=== PATIENT | female | born 1970 | race Caucasian/White ===

== ENCOUNTER → 2016-12-07 | Outpatient (CLI) | payer OTHER ==
[~2016-12-07] MED LIST: ZOLPIDEM 5 MG TABLET. PO ONE
--- NOTE | 2016-12-09 19:15 | SLEEP ---
DATE OF STUDY: 12/07/2016 ATTENDING PHYSICIAN: Abner Mei MD HISTORY OF PRESENT ILLNESS: The patient is a 46 years old, who weighs 319 pounds with a BMI of 50. The patient has severe subjective hypersomnia with an Encinal score of 18. Sleep study was performed to rule out JACQUIE. During the night study, the patient spent 422 minutes in bed and slept for 343 minutes with a sleep efficiency of 81%. Sleep latency was 103 minutes with the absence of REM sleep. Overall, sleep architecture showed increased stage 1 and stage 2 sleep, normal slow wave and absent REM sleep. During the night of the study, the patient had no obstructive apneas. There were no central apneas and 2 mixed apneas. There were 52 hypopneas. The patient's apnea hypopnea index was 9 per hour, supine index 11 per hour. REM sleep was not seen. Review of nocturnal oximetry study revealed a mean oxygen saturation of 94% with the lowest of 85%. 9% of time oxygen saturation remained between 80% and 89%. EKG monitoring revealed normal sinus rhythm. No sustained arrhythmias were observed. Average heart rate was 87 beats per minute. PLMS were seen at the index of 125 per hour and 11 per hour caused EEG arousals. Due to low AHI, the patient did not meet the split night criteria for CPAP initiation. IMPRESSION: 1. Mild sleep apnea-hypopnea syndrome at an AHI of 9 per hour. Absence of REM sleep can underestimate the severity of sleep apnea. 2. Mild nocturnal hypoxia secondary to obstructive sleep apnea. 3. Severe PLMS at an index of 125 per hour and 11 per hour caused EEG arousals. RECOMMENDATIONS: 1. The patient did not meet the split night criteria for CPAP initiation due to low AHI. However, the patient is very symptomatic with an Encinal score of 18. I would recommend treating patient's sleep apnea with either an oral appliance as recommended by the dentist or CPAP titration. 2. If patient undergoes CPAP titration, then follow up in 4-6 weeks to assess compliance with CPAP and to document clinical improvement. 3. Weight loss is strongly advised. 4. Avoid CORPORATE LEARNING CONSULTANT depressants. 5. Caution regarding driving until symptoms of sleep apnea resolve with above recommendations. 6. PLMS can be treated with dopaminergic agonist agents if the patient is clinically symptomatic. The patient should also be further evaluated for symptoms of restless legs during the day. GURVINDER GAMBOA MD DR: Wolfgang JOB#: [id number] / [id number] ABNER Yuen
== END | disposition home or self-care (01) ==
LOC: SLPLAB 18:40
PROVIDERS: ATTEND Family Medicine
DX: R53.83 Other fatigue (principal); G47.33 Obstructive sleep apnea (adult) (pediatric)
CPT/HCPCS: 95810

== ENCOUNTER → 2017-01-04 | Day surgery (SDC) | payer OTHER ==
[~2017-01-04] MED LIST changes: +ANAS1TAB PO; +CETI10TA16 PO; +CITA20TA5 PO; +IV RINGERS,LACTATED 1000ML 1,000 ML IV SCH; +LANS15CA5 PO; +MOME17SP NS; +MONT10TA9 PO; +NAPR500T3 PO; +PROPOFOL 20 ML IV ONE; +RANI150C PO; +TERB250T PO; -ZOLPIDEM 5 MG TABLET. PO ONE
[2017-01-04 08:36] VITALS: BP 159/92
--- NOTE | 2017-01-05 14:02 | PATHOLOGY ---
PATHOLOGY REPORT * * * * * * * * FINAL DIAGNOSIS: Esophageal biopsy, distal esophagus: - Segments of hyperplastic squamous esophageal mucosa showing chronic inflammation, consistent with reflux esophagitis. COMMENT: Sections of the distal esophageal biopsy reveal segments of hyperplastic squamous esophageal mucosa showing focal mild to moderate chronic inflammation. The findings are consistent with reflux esophagitis. There is no evidence of Luna's change, dysplasia, or malignancy. (JPM:; d/t: 01/05/17) REPORT ELECTRONICALLY SIGNED BY: Fercho Ortiz M.D. DATE/TIME: 01/05/2017 14:01 * * * * * * * * GROSS PATHOLOGY: Received in formalin labeled "Noreen Caro and distal esophageal bx," are 3 segments of nagy soft tissue measuring 1.2 x 0.4 x 0.2 cm in aggregate dimensions and ranging from 0.2 to 0.6 cm in maximum dimension. The specimen is submitted entirely in cassette A1. (TTL; 01/04/2017) INITIAL CPT CODE(S): A; 96248 Professional services performed [place] [facility] [address] Technical services performed by [facility] at [address] [place] [address]. SPECIMEN(S) RECEIVED: A.Distal esophageal biopsy, r/o esophagitis CLINICAL HISTORY: GERD PATIENT: NOREEN CARO /AGE: 5 1970 (Age: 46) PATIENT #: [id number] ALT CASE #: SPECIMEN COLLECTION DATE: 01/04/2017 SPECIMEN RECEIVED DATE: 01/04/2017 [facility] - [address] [place] [address] - PHONE: [phone] * * * END OF REPORT * * *
== END | disposition home or self-care (01) ==
LOC: ENDOS 06:37
PROVIDERS: ATTEND Internal Medicine Gastroenterology
DX: K21.0 Gastro-esophageal reflux disease with esophagitis (principal); K29.70 Gastritis, unspecified, without bleeding; Z72.89 Other problems related to lifestyle; Z90.710 Acquired absence of both cervix and uterus; Z85.3 Personal history of malignant neoplasm of breast
CPT/HCPCS: 43239; J2704

== ENCOUNTER → 2017-01-27 | Outpatient (CLI) | payer OTHER ==
[2017-01-04 08:36] VITALS: BP 159/92
[~2017-01-27] MED LIST changes: -IV RINGERS,LACTATED 1000ML 1,000 ML IV SCH; -PROPOFOL 20 ML IV ONE
[2017-01-27 13:33] LABS: BASO # 0.1 x10^3/uL (0.0-0.2); BASO % 1 % (0-3); EOS % 2 % (0-3); HEMATOCRIT 39.4 % (36.0-47.0); HEMOGLOBIN 12.8 g/dL (12.0-15.5); LYMPH # 1.5 x10^3/uL (1.0-4.8); LYMPH % 21 % (24-48); MEAN CORPUSCULAR HEMOGLOBIN 29 pg (25-35); MEAN CORPUSCULAR HGB CONC 33 g/dL (31-37); MEAN CORPUSCULAR VOLUME 90 fL (79-100); MONO % 7 % (0-9); NEUT % 68 % (31-73); PLATELET COUNT 276 x10^3/uL (140-400); RED BLOOD COUNT 4.36 x10^6/uL (3.50-5.40); RED CELL DISTRIBUTION WIDTH 14.2 % (11.5-14.5); WHITE BLOOD COUNT 7.3 x10^3/uL (4.0-11.0)
[2017-01-27 13:59] LABS: ALBUMIN 4.3 g/dL (3.4-5.0); CALCIUM 9.2 mg/dL (8.5-10.1); CREATININE 0.9 mg/dL (0.6-1.0); GFR 66.8; POTASSIUM 4.3 mmol/L (3.5-5.1); TOTAL BILIRUBIN 0.4 mg/dL (0.2-1.0); TOTAL PROTEIN 8.5 g/dL (6.4-8.2)
== END | disposition home or self-care (01) ==
LOC: LAB 12:59
PROVIDERS: ATTEND Internal Medicine Hematology & Oncology
DX: C50.412 Malignant neoplasm of upper-outer quadrant of left female breast (principal)
CPT/HCPCS: 36415; 80053; 85027; 86300

== ENCOUNTER → 2017-02-02 | Outpatient (CLI) | payer OTHER ==
[2017-01-04 08:36] VITALS: BP 159/92
[2017-02-10 13:44] LABS: COMMENT IMMUNOFIX SERUM SEE SEPARATE REPORT; PROTEIN TOTAL SEE SEPARATE REPORT
== END | disposition home or self-care (01) ==
LOC: LAB 16:36
PROVIDERS: ATTEND Internal Medicine Hematology & Oncology
DX: C50.412 Malignant neoplasm of upper-outer quadrant of left female breast (principal)
CPT/HCPCS: 36415; 84165; 86334

== ENCOUNTER → 2017-11-28 | Outpatient (CLI) | payer OTHER ==
[2017-11-28 07:45] LABS: ADD MAN DIFF? NO
[2017-11-28 07:54] LABS: BASO # 0.1 x10^3/uL (0.0-0.2); BASO % 1 % (0-3); EOS # 0.1 x10^3/uL (0.0-0.7); EOS % 2 % (0-3); HEMATOCRIT 38.9 % (36.0-47.0); HEMOGLOBIN 12.9 g/dL (12.0-15.5); LYMPH # 1.1 x10^3/uL (1.0-4.8); LYMPH % 19 % (24-48); MEAN CORPUSCULAR HEMOGLOBIN 30 pg (25-35); MEAN CORPUSCULAR HGB CONC 33 g/dL (31-37); MEAN CORPUSCULAR VOLUME 89 fL (79-100); MONO # 0.5 x10^3/uL (0.0-1.1); MONO % 9 % (0-9); NEUT # 4.3 x10^3uL (1.8-7.7); NEUT % 69 % (31-73); PLATELET COUNT 232 x10^3/uL (140-400); RED BLOOD COUNT 4.38 x10^6/uL (3.50-5.40); RED CELL DISTRIBUTION WIDTH 14.2 % (11.5-14.5); WHITE BLOOD COUNT 6.2 x10^3/uL (4.0-11.0)
[2017-11-28 08:07] LABS: BILIRUBIN,URINE NEGATIVE (NEG); CLARITY,URINE CLEAR; COLOR,URINE YELLOW; GLUCOSE,URINE NEGATIVE (NEG); NITRITE,URINE NEGATIVE (NEG); PH,URINE 6.5; PROTEIN,URINE NEGATIVE (NEG-TRACE); UROBILINOGEN,URINE 0.2 mg/dL (0.2 mg/dL)
[2017-11-28 08:16] LABS: ALBUMIN 3.9 g/dL (3.4-5.0); ALBUMIN/GLOBULIN RATIO 0.9 (1.0-1.7); ALK PHOS 92 U/L (46-116); ALT (SGPT) 29 U/L (14-59); ANION GAP 6 (6-14); AST (SGOT) 34 U/L (15-37); BLOOD UREA NITROGEN 19 mg/dL (7-20); BUN/CREATININE RATIO 21 (6-20); CALCIUM 9.1 mg/dL (8.5-10.1); CARBON DIOXIDE 30 mmol/L (21-32); CHLORIDE 103 mmol/L (98-107); CHOLESTEROL 142 mg/dL (0-200); CREATININE 0.9 mg/dL (0.6-1.0); GFR 66.5; GLUCOSE 95 mg/dL (70-99); HDLC 52 mg/dL (40-60); LDLC 73 mg/dL (0-100); NON-HDL CHOLESTEROL 90 mg/dL (0-129); POTASSIUM 4.6 mmol/L (3.5-5.1); SODIUM 139 mmol/L (136-145); TOTAL BILIRUBIN 0.4 mg/dL (0.2-1.0); TOTAL PROTEIN 8.1 g/dL (6.4-8.2); TRIGLYCERIDES 86 mg/dL (0-150); VLDLC 17 mg/dL (0-40)
[2017-11-28 08:17] LABS: CHOLESTEROL/HDL RATIO 2.7
[2017-11-28 08:24] LABS: THYROID STIM HORMONE (TSH) 1.627 uIU/mL (0.358-3.74)
[2017-11-28 08:52] LABS: BACTERIA,URINE FEW /HPF (0-FEW); RBC,URINE 0 /HPF (0-2); SQUAMOUS EPITHELIAL CELL,UR FEW /LPF
== END | disposition home or self-care (01) ==
LOC: LAB 07:31
DX: Z00.01 Encounter for general adult medical examination with abnormal findings (principal); R79.89 Other specified abnormal findings of blood chemistry
CPT/HCPCS: 36415; 80053; 80061; 81001; 84443; 85025; 87086

== ENCOUNTER → 2018-02-05 | Outpatient (CLI) | payer OTHER ==
[2018-02-05 16:29] LABS: ADD MAN DIFF? NO
[2018-02-05 16:37] LABS: BASO # 0.1 x10^3/uL (0.0-0.2); BASO % 1 % (0-3); EOS # 0.1 x10^3/uL (0.0-0.7); EOS % 2 % (0-3); HEMOGLOBIN 12.7 g/dL (12.0-15.5); LYMPH # 1.7 x10^3/uL (1.0-4.8); LYMPH % 21 % (24-48); MEAN CORPUSCULAR HEMOGLOBIN 30 pg (25-35); MEAN CORPUSCULAR HGB CONC 33 g/dL (31-37); MEAN CORPUSCULAR VOLUME 90 fL (79-100); MONO # 0.8 x10^3/uL (0.0-1.1); MONO % 10 % (0-9); NEUT # 5.4 x10^3uL (1.8-7.7); NEUT % 66 % (31-73); PLATELET COUNT 243 x10^3/uL (140-400); RED BLOOD COUNT 4.24 x10^6/uL (3.50-5.40); RED CELL DISTRIBUTION WIDTH 14.5 % (11.5-14.5); WHITE BLOOD COUNT 8.1 x10^3/uL (4.0-11.0)
[2018-02-05 16:59] LABS: ALBUMIN 3.8 g/dL (3.4-5.0); ALBUMIN/GLOBULIN RATIO 0.9 (1.0-1.7); ALK PHOS 108 U/L (46-116); ALT (SGPT) 30 U/L (14-59); ANION GAP 9 (6-14); AST (SGOT) 41 U/L (15-37); BLOOD UREA NITROGEN 13 mg/dL (7-20); BUN/CREATININE RATIO 14 (6-20); CALCIUM 9.1 mg/dL (8.5-10.1); CARBON DIOXIDE 29 mmol/L (21-32); CHLORIDE 103 mmol/L (98-107); CREATININE 0.9 mg/dL (0.6-1.0); GFR 66.5; GLUCOSE 99 mg/dL (70-99); POTASSIUM 4.4 mmol/L (3.5-5.1); SODIUM 141 mmol/L (136-145); TOTAL BILIRUBIN 0.3 mg/dL (0.2-1.0)
[2018-02-06 07:36] LABS: CA 27.29 13.3 U/mL (0.0-38.6)
== END | disposition home or self-care (01) ==
LOC: LAB 16:12
DX: C50.412 Malignant neoplasm of upper-outer quadrant of left female breast (principal); Z17.0 Estrogen receptor positive status [ER+]
CPT/HCPCS: 36415; 80053; 85025; 85220; 86300

== ENCOUNTER → 2018-02-12 | Outpatient (CLI) | payer OTHER | END | disposition home or self-care (01) | LOC: KCIC DEXA 11:02 | DX: C50.912 Malignant neoplasm of unspecified site of left female breast (principal); M81.0 Age-related osteoporosis without current pathological fracture; M85.88 Other specified disorders of bone density and structure, other site; Z78.0 Asymptomatic menopausal state | CPT/HCPCS: 77080 ==

== ENCOUNTER → 2018-08-06 | Outpatient (CLI) | payer OTHER ==
[2017-01-04 08:36] VITALS: BP 159/92
[~2018-08-06] MED LIST changes: -CITA20TA5 PO; +CITA20TA6 PO; +NAPR-514 PO; -NAPR500T3 PO
[2018-08-06 16:53] LABS: BASO # 0.1 x10^3/uL (0.0-0.2); BASO % 1 % (0-3); EOS # 0.1 x10^3/uL (0.0-0.7); EOS % 2 % (0-3); HEMATOCRIT 36.9 % (36.0-47.0); HEMOGLOBIN 12.3 g/dL (12.0-15.5); LYMPH # 1.5 x10^3/uL (1.0-4.8); LYMPH % 20 % (24-48); MEAN CORPUSCULAR HEMOGLOBIN 30 pg (25-35); MEAN CORPUSCULAR HGB CONC 33 g/dL (31-37); MEAN CORPUSCULAR VOLUME 90 fL (79-100); MONO # 0.7 x10^3/uL (0.0-1.1); MONO % 10 % (0-9); NEUT % 67 % (31-73); PLATELET COUNT 259 x10^3/uL (140-400); RED BLOOD COUNT 4.11 x10^6/uL (3.50-5.40); RED CELL DISTRIBUTION WIDTH 14.2 % (11.5-14.5); WHITE BLOOD COUNT 7.3 x10^3/uL (4.0-11.0)
[2018-08-06 17:10] LABS: CALCIUM 9.6 mg/dL (8.5-10.1); GFR 58.7; POTASSIUM 5.4 mmol/L (3.5-5.1); TOTAL BILIRUBIN 0.2 mg/dL (0.2-1.0); TOTAL PROTEIN 8.2 g/dL (6.4-8.2)
== END | disposition home or self-care (01) ==
LOC: LAB 16:37
PROVIDERS: ATTEND Internal Medicine Hematology & Oncology
DX: C50.412 Malignant neoplasm of upper-outer quadrant of left female breast (principal); Z17.0 Estrogen receptor positive status [ER+]
CPT/HCPCS: 36415; 80053; 85025; 86300

== ENCOUNTER → 2018-10-12 | Day surgery (SDC) | payer OTHER ==
[~2018-10-12] MED LIST changes: +HYDROmorphone 2 MG/ML VIAL IV PRN; +IV RINGERS,LACTATED 1000ML 1,000 ML IV SCH; +LIDOCAINE 1% PF 2 ML VIAL. ID PRN; +LOSA25TA54 PO; +MONT10TA49 PO; -MONT10TA9 PO; +MORPHINE SULFATE 2 MG/ML VIAL. IV PRN; +ONDANSETRON PF 4 MG/2 ML VIAL. IV PRN; +PROCHLORPERAZINE 10 MG/2 ML VIAL. IV PRN; +PROPOFOL 40 ML IV ONE; +fentaNYL PF VIAL 100 MCG/2 ML VIAL IV PRN
[2018-10-12 10:03] VITALS: BP 117/72
--- NOTE | 2018-10-12 11:41 | CONS ---
DATE OF CONSULTATION: 10/12/2018 UPDATED HISTORY AND PHYSICAL REFERRING PHYSICIAN: Dayne Mei. REASON FOR VISIT: Colorectal screening. HISTORY OF PRESENT ILLNESS: A 48-year-old female whose past medical history is significant for gastroesophageal reflux disease, breast cancer, hypertension and osteoarthritis, who is seen for a screening colon exam. Bowel habits are regular, without diarrhea or constipation. There has been no melena and/or hematochezia. Family history is unrevealing for colon cancer, but positive for colon polyps with her sister. This is her first colon exam. She is, otherwise, without additional constitutional complaints. PAST MEDICAL HISTORY: History of GERD, breast cancer, hypertension and osteoarthrosis. ALLERGIES: None. MEDICATIONS: Include , cetirizine, citalopram, Prevacid, losartan, Nasonex, montelukast, Naprosyn and Lamisil. SOCIAL HISTORY: Nonsmoker. Social drinker. FAMILY HISTORY: Significant for colonic polyps with her sister, breast cancer with multiple siblings, [place] with her father and uncle and CVA with an uncle and paternal grandfather. PAST SURGICAL HISTORY: Breast surgery and hysterectomy. REVIEW OF SYSTEMS: Per records. PHYSICAL EXAMINATION: GENERAL: Reveals a well-nourished, well-developed female. VITAL SIGNS: Temperature is 98.6, pulse is 90 and respiratory rate is 20. HEENT EXAMINATION: Normocephalic, atraumatic. Pupils and extraocular muscles are not tested. Sclerae are anicteric. NECK: Supple. LUNGS: Clear. CARDIOVASCULAR EXAMINATION: Reveals an S1 and S2, without S3, S4 or appreciable murmur. ABDOMEN: Examination reveals soft abdomen. Normoactive bowel sounds, without appreciable hepatosplenomegaly, with infraumbilical hysterectomy incision. EXTREMITIES: Examination reveals no cyanosis, clubbing or edema. IMPRESSION AND PLAN: Colorectal screening. With a positive family history of colon polyps, it is recommended at this time. Risks and benefits of the procedure were discussed with the patient, including risk of hemorrhage and perforation. She is willing to proceed. SHASHA DAY MD DR: HARRIET/kwame JOB#: [id number] / [id number]
--- NOTE | 2018-10-15 15:08 | PATHOLOGY ---
[facility] Accession Number: [id number] . 01 Material submitted: . SIGMOID POLYP . 01 Clinical history: . Screening . 02 Diagnosis: Colon biopsies, sigmoid polyp: - Hyperplastic polyp. (JPM:kay; 10/15/2018) QMS/10/15/2018 . 02 Comment: There are no adenomatous changes or evidence of malignancy. . 02 Electronically signed: . Fercho Ortiz MD, Pathologist NPI- [id number] . 01 Gross description: . Received in formalin labeled "Gordo, Noreen, sigmoid polyp," are 2 segments of nagy soft tissue measuring 1.0 x 0.2 x 0.2 cm in aggregate dimensions and ranging from 0.7 to 0.2 cm in maximum dimension. The specimen is submitted entirely in cassette A1. (TSD; 10/12/2018) TOB/TOB . 02 Pathologist provided ICD-10: K63.5 . 02 CPT . 168980 Specimen Comment: A courtesy copy of this report has been sent to Specimen Comment: [phone], . Specimen Comment: Report sent to and Performed at: 01 [facility] [address], [place] [id number] MD Landon You MD Phone: [phone] Performed at: 02 [facility] [address] [place], [place] [id number] MD Fercho Ortiz MD Phone: [phone]
== END | disposition home or self-care (01) ==
LOC: SURG 08:07
PROVIDERS: ATTEND Internal Medicine Gastroenterology
DX: Z12.11 Encounter for screening for malignant neoplasm of colon (principal); K63.5 Polyp of colon; K57.30 Diverticulosis of large intestine without perforation or abscess without bleeding; K64.0 First degree hemorrhoids; I10 Essential (primary) hypertension; K21.9 Gastro-esophageal reflux disease without esophagitis; Z85.3 Personal history of malignant neoplasm of breast; M19.90 Unspecified osteoarthritis, unspecified site; Z79.899 Other long term (current) drug therapy; Z72.89 Other problems related to lifestyle; Z82.49 Family history of ischemic heart disease and other diseases of the circulatory system; Z90.710 Acquired absence of both cervix and uterus; Z98.890 Other specified postprocedural states
CPT/HCPCS: 45380; J2704; 88305

== ENCOUNTER → 2019-02-07 | Outpatient (CLI) | payer OTHER ==
[2018-10-12 10:03] VITALS: BP 117/72
[~2019-02-07] MED LIST changes: -HYDROmorphone 2 MG/ML VIAL IV PRN; -IV RINGERS,LACTATED 1000ML 1,000 ML IV SCH; -LIDOCAINE 1% PF 2 ML VIAL. ID PRN; -MONT10TA49 PO; +MONT10TA9 PO; -MORPHINE SULFATE 2 MG/ML VIAL. IV PRN; -ONDANSETRON PF 4 MG/2 ML VIAL. IV PRN; -PROCHLORPERAZINE 10 MG/2 ML VIAL. IV PRN; -PROPOFOL 40 ML IV ONE; -fentaNYL PF VIAL 100 MCG/2 ML VIAL IV PRN
[2019-02-07 17:19] LABS: BASO # 0.1 x10^3/uL (0.0-0.2); BASO % 1 % (0-3); EOS # 0.2 x10^3/uL (0.0-0.7); EOS % 2 % (0-3); HEMATOCRIT 37.8 % (36.0-47.0); HEMOGLOBIN 12.6 g/dL (12.0-15.5); LYMPH # 1.4 x10^3/uL (1.0-4.8); LYMPH % 13 % (24-48); MEAN CORPUSCULAR HEMOGLOBIN 30 pg (25-35); MEAN CORPUSCULAR HGB CONC 33 g/dL (31-37); MEAN CORPUSCULAR VOLUME 89 fL (79-100); MONO # 0.9 x10^3/uL (0.0-1.1); MONO % 8 % (0-9); NEUT # 7.9 x10^3uL (1.8-7.7); NEUT % 76 % (31-73); PLATELET COUNT 251 x10^3/uL (140-400); RED BLOOD COUNT 4.24 x10^6/uL (3.50-5.40); RED CELL DISTRIBUTION WIDTH 14.3 % (11.5-14.5); WHITE BLOOD COUNT 10.4 x10^3/uL (4.0-11.0)
[2019-02-07 17:30] LABS: ALBUMIN 4.1 g/dL (3.4-5.0); CALCIUM 9.2 mg/dL (8.5-10.1); GFR 58.5; POTASSIUM 3.9 mmol/L (3.5-5.1); TOTAL BILIRUBIN 0.4 mg/dL (0.2-1.0); TOTAL PROTEIN 8.1 g/dL (6.4-8.2)
== END | disposition home or self-care (01) ==
LOC: LAB 16:39
PROVIDERS: ATTEND Internal Medicine Hematology & Oncology
DX: C50.412 Malignant neoplasm of upper-outer quadrant of left female breast (principal); Z17.0 Estrogen receptor positive status [ER+]
CPT/HCPCS: 36415; 80053; 85025; 86300

== ENCOUNTER → 2019-08-05 | Outpatient (CLI) | payer OTHER ==
[2018-10-12 10:03] VITALS: BP 117/72
[~2019-08-05] MED LIST changes: +MONT10TA49 PO; -MONT10TA9 PO
[2019-08-05 17:00] LABS: BASO # 0.1 x10^3/uL (0.0-0.2); BASO % 1 % (0-3); EOS # 0.3 x10^3/uL (0.0-0.7); EOS % 3 % (0-3); HEMATOCRIT 39.1 % (36.0-47.0); HEMOGLOBIN 12.9 g/dL (12.0-15.5); LYMPH # 1.6 x10^3/uL (1.0-4.8); LYMPH % 20 % (24-48); MEAN CORPUSCULAR HEMOGLOBIN 29 pg (25-35); MEAN CORPUSCULAR HGB CONC 33 g/dL (31-37); MEAN CORPUSCULAR VOLUME 89 fL (79-100); MONO # 0.8 x10^3/uL (0.0-1.1); MONO % 9 % (0-9); NEUT # 5.5 x10^3/uL (1.8-7.7); NEUT % 66 % (31-73); PLATELET COUNT 269 x10^3/uL (140-400); RED BLOOD COUNT 4.41 x10^6/uL (3.50-5.40); RED CELL DISTRIBUTION WIDTH 14.3 % (11.5-14.5); WHITE BLOOD COUNT 8.3 x10^3/uL (4.0-11.0)
[2019-08-05 17:08] LABS: ALBUMIN 4.1 g/dL (3.4-5.0); CALCIUM 9.1 mg/dL (8.5-10.1); CREATININE 1.1 mg/dL (0.6-1.0); GFR 52.4; TOTAL BILIRUBIN 0.3 mg/dL (0.2-1.0); TOTAL PROTEIN 8.2 g/dL (6.4-8.2)
== END | disposition home or self-care (01) ==
LOC: LAB 16:37
PROVIDERS: ATTEND Internal Medicine Hematology & Oncology
DX: C50.412 Malignant neoplasm of upper-outer quadrant of left female breast (principal); Z17.0 Estrogen receptor positive status [ER+]
CPT/HCPCS: 36415; 80053; 85025; 86300

== ENCOUNTER → 2019-11-06 | Outpatient (CLI) | payer OTHER ==
[2018-10-12 10:03] VITALS: BP 117/72
[~2019-11-06] MED LIST changes: +ZOLPIDEM 5 MG TABLET. PO ONE
--- NOTE | 2019-11-07 12:27 | SLEEP ---
DATE OF STUDY: 11/06/2019 SLEEP STUDY ATTENDING PHYSICIAN: Deonna Lehman MD SUMMARY: The patient is 49 years old who weighs 330 pounds with a BMI of 52. The patient's Windfall score was 18. The patient underwent split night study performed at [facility]. During the night study, the patient spent 427 minutes in bed and slept for 361 minutes with a sleep efficiency of 85%. Sleep latency was 11 minutes with a REM latency of 293 minutes. Sleep architecture showed normal stage 1 sleep, increased stage 2 sleep, normal slow wave and normal REM sleep. During the initial diagnostic portion of the study, the patient slept for 117 minutes. During that time, there were no obstructive central or mixed apneas. There were 46 hypopneas. The patient's apnea-hypopnea index was 24 per hour, supine index 28 per hour. REM sleep was not seen during the diagnostic portion. EKG monitoring revealed normal sinus rhythm. Average heart rate 94 beats per minute, no sustained arrhythmias observed. Nocturnal oximetry study revealed a mean oxygen saturation of 96% with the lowest of 85%. A 24% of time oxygen saturation remained between 80% and 89%. PLMS were seen at index of 5 per hour and 2 per hour caused EEG arousals. The patient met the criteria for CPAP initiation. It was started at 5 cm water and titrated up to 14 cm water. At the final pressure, the patient slept for 95 minutes including supine and REM sleep. The patient's AHI was reduced to 1 per hour and oxygen saturation remained above 91%. The patient used a medium size full face mask. IMPRESSION: 1. Moderate sleep apnea-hypopnea syndrome at an AHI of 24 per hour. Absence of REM sleep during the diagnostic portion can underestimate the severity of sleep apnea. 2. Nocturnal hypoxia secondary to obstructive sleep apnea. 3. No clinically significant periodic limb movements in sleep. RECOMMENDATIONS: 1. CPAP at 14 cm water completely eliminated the patient's sleep apnea and should be used on a nightly basis. 2. Follow up in 4-6 weeks to assess compliance with CPAP and to document clinical improvement. 3. Weight loss is strongly advised. 4. Avoid RETAIL DELIVERY DRIVER depressants. 5. Cautioned regarding driving until symptoms of sleep apnea resolve with the use of CPAP. GURVINDER GAMBOA MD DR: DOLLY/kwame JOB#: [id number] / [id number] DEONNA Humphreys MD
== END | disposition home or self-care (01) ==
LOC: SLPLAB 18:44
PROVIDERS: ATTEND Internal Medicine
DX: G47.33 Obstructive sleep apnea (adult) (pediatric) (principal); G47.34 Idiopathic sleep related nonobstructive alveolar hypoventilation
CPT/HCPCS: 95810

== ENCOUNTER → 2020-02-04 | Outpatient (CLI) | payer OTHER ==
[2018-10-12 10:03] VITALS: BP 117/72
[~2020-02-04] MED LIST changes: -ZOLPIDEM 5 MG TABLET. PO ONE
[2020-02-04 16:43] LABS: BASO % 0 % (0-3); EOS # 0.2 x10^3/uL (0.0-0.7); EOS % 2 % (0-3); HEMATOCRIT 37.1 % (36.0-47.0); HEMOGLOBIN 12.4 g/dL (12.0-15.5); LYMPH # 1.4 x10^3/uL (1.0-4.8); LYMPH % 16 % (24-48); MEAN CORPUSCULAR HEMOGLOBIN 30 pg (25-35); MEAN CORPUSCULAR HGB CONC 33 g/dL (31-37); MEAN CORPUSCULAR VOLUME 89 fL (79-100); MONO # 0.7 x10^3/uL (0.0-1.1); MONO % 9 % (0-9); NEUT # 6.2 x10^3/uL (1.8-7.7); NEUT % 72 % (31-73); PLATELET COUNT 261 x10^3/uL (140-400); RED BLOOD COUNT 4.15 x10^6/uL (3.50-5.40); RED CELL DISTRIBUTION WIDTH 14.9 % (11.5-14.5); WHITE BLOOD COUNT 8.6 x10^3/uL (4.0-11.0)
[2020-02-04 17:19] LABS: ALBUMIN/GLOBULIN RATIO 1.1 (1.0-1.7); CALCIUM 9.1 mg/dL (8.5-10.1); CREATININE 0.9 mg/dL (0.6-1.0); POTASSIUM 4.8 mmol/L (3.5-5.1); TOTAL BILIRUBIN 0.4 mg/dL (0.2-1.0); TOTAL PROTEIN 7.5 g/dL (6.4-8.2)
== END | disposition home or self-care (01) ==
LOC: LAB 16:19
PROVIDERS: ATTEND Internal Medicine
DX: Z00.6 Encounter for examination for normal comparison and control in clinical research program (principal); C50.412 Malignant neoplasm of upper-outer quadrant of left female breast
CPT/HCPCS: 36415; 80053; 85025; 86300

== ENCOUNTER → 2020-06-02 | Outpatient (CLI) | payer OTHER ==
[2018-10-12 10:03] VITALS: BP 117/72
== END | disposition home or self-care (01) ==
LOC: LAB 11:24
PROVIDERS: ATTEND Internal Medicine Pulmonary Disease
DX: Z20.828 Contact with and (suspected) exposure to other viral communicable diseases (principal)
CPT/HCPCS: U0003-CS

== ENCOUNTER → 2020-08-26 | Outpatient (CLI) | payer OTHER ==
[2018-10-12 10:03] VITALS: BP 117/72
[2020-08-26 19:17] LABS: TOTAL PROTEIN 7.3 g/dL (6.4-8.2)
[2020-08-26 19:18] LABS: ALBUMIN/GLOBULIN RATIO 1.2 (1.0-1.7); CALCIUM 9.2 mg/dL (8.5-10.1); CREATININE 0.9 mg/dL (0.6-1.0); GFR 65.8; POTASSIUM 4.5 mmol/L (3.5-5.1); TOTAL BILIRUBIN 0.3 mg/dL (0.2-1.0)
[2020-08-27 16:00] LABS: BASO # 0.1 x10^3/uL (0.0-0.2); BASO % 1 % (0-3); EOS # 0.3 x10^3/uL (0.0-0.7); EOS % 4 % (0-3); HEMATOCRIT 36.2 % (36.0-47.0); LYMPH # 1.3 x10^3/uL (1.0-4.8); LYMPH % 18 % (24-48); MEAN CORPUSCULAR HEMOGLOBIN 30 pg (25-35); MEAN CORPUSCULAR HGB CONC 33 g/dL (31-37); MEAN CORPUSCULAR VOLUME 89 fL (79-100); MONO # 0.7 x10^3/uL (0.0-1.1); MONO % 10 % (0-9); NEUT # 4.9 x10^3/uL (1.8-7.7); NEUT % 67 % (31-73); PLATELET COUNT 260 x10^3/uL (140-400); RED BLOOD COUNT 4.06 x10^6/uL (3.50-5.40); RED CELL DISTRIBUTION WIDTH 14.4 % (11.5-14.5); WHITE BLOOD COUNT 7.3 x10^3/uL (4.0-11.0)
== END ==
LOC: LAB 16:32
PROVIDERS: ATTEND Internal Medicine Hematology & Oncology
DX: C50.412 Malignant neoplasm of upper-outer quadrant of left female breast (principal); Z17.0 Estrogen receptor positive status [ER+]
CPT/HCPCS: 36415; 80053; 85025; 86300

== ENCOUNTER → 2020-12-21 | Outpatient (CLI) | payer OTHER ==
[2018-10-12 10:03] VITALS: BP 117/72
--- NOTE | 2020-12-22 09:40 | RAD ---
CT ORBITS/SELLA WITHOUT CONTRAST Clinical indications: Left ear cholesteatoma. Technique: Helical CT scanning of both temporal bones was performed. 1 mm reconstructed axial and cor onal small [id number] CT images of each temporal bone were generated and reviewed on a computer mo nitor. One or more of the following dose reduction techniques were utilized: Automated exposure contr ol (AEC), Adjustment of mA and/or kV according to patient size, Use of iterative reconstruction techn ique such as ASiR, CT scan done according to ALARA and image gently/image wisely FINDINGS: Right Temporal Bone: Opacification of the aditus ad antrum, mastoid antrum, and mastoid air cells. No asymmetrical widenin g of the aditus ad antrum. No blunting of the scutum. No displacement or erosion of the ossicular ashlie in. Opacification of the mesial tympanicum extending into the sinus tympani and facial recess. Inferi or wall of the tympanic segment of the facial canal is not clearly seen. The vestibulocochlear comple x and semicircular canals are morphologically normal in appearance. Left Temporal Bone: Partial opacification of the epitympanum, with opacification of the aditus ad antrum, mastoid antrum, and mastoid air cells. No asymmetric widening of the aditus ad antrum. Blunting of the scutum with e rosion of the tegmen tympani. No erosion or displacement of the malleus or incus. Opacification of th e oval window niche which extends into the sinus tympani and facial recess. Stapes is only partially visualized. Inferior wall of the tympanic segment of the facial canal is not clearly seen. The vestib ulocochlear complex and semicircular canals are morphologically normal in appearance. IMPRESSION: 1. LEFT: Partial opacification of the epitympanum on the left with blunting of the scutum and erosion of the tegmen tympani, consistent with patient's history of cholesteatoma. Opacification of the roun d window niche and sinus tympani with only partial visualization of the stapes, which could be obscur ed or eroded. Inferior wall of the tympanic segment of the facial canal is not clearly seen, and dehi scence is not excluded. 2. RIGHT: Opacification of the mesotympanum and mastoid air cells on the right without evidence of os seous erosion. This could represent middle ear/mastoid effusion, although an additional underlying ch olesteatoma would be difficult to exclude. Electronically signed by: Marvin Garcias MD (12/22/2020 9:38 AM) [id number]
== END ==
LOC: CT 11:49
PROVIDERS: ATTEND Otolaryngology
DX: H71.02 Cholesteatoma of attic, left ear (principal)
CPT/HCPCS: 70480

== ENCOUNTER → 2021-03-04 | Outpatient (CLI) | payer OTHER ==
[2018-10-12 10:03] VITALS: BP 117/72
[~2021-03-04] MED LIST changes: +GADOTERATE 7.5 MMOL/15ML VIAL. IVP ONE
--- NOTE | 2021-03-04 16:23 | RAD ---
MRI BRAIN WO+W History:Reason: ENCEPHALOCELE 30mL CLARISCAN / Spl. Instructions: / History: Technique: Multiplanar, multi sequential without and with intravenous contrast MR imaging was perform ed of the brain. Comparison: CT December 21, 2020 Findings: No acute infarct. No intracranial hemorrhage. No mass effect. No hydrocephalus. No pathologic enhanc ement. No pathologic signal abnormality or enhancement within the bilateral internal auditory canals or cere bellopontine angles. Prominent vascular structure within the right internal auditory canal. Symmetric bilateral semicircular canals and cochlea. Imaged orbits are unremarkable. Imaged paranasal sinuses are clear. Bilateral mastoid opacification with effusions. No evidence of encephalocele. Impression: 1. No acute intracranial abnormality. 2. Bilateral mastoid opacification and effusions. Electronically signed by: Jamil Oglesby DO (03/04/2021 4:21 PM) [facility]
== END ==
LOC: MRI 11:01
PROVIDERS: ATTEND Otolaryngology Otology & Neurotology
DX: Q01.9 Encephalocele, unspecified (principal)
CPT/HCPCS: 70553; A9575

== ENCOUNTER → 2021-08-25 | Outpatient (CLI) | payer OTHER ==
[2018-10-12 10:03] VITALS: BP 117/72
[~2021-08-25] MED LIST changes: -GADOTERATE 7.5 MMOL/15ML VIAL. IVP ONE
[2021-08-25 07:50] LABS: BASO # 0.1 x10^3/uL (0.0-0.2); BASO % 2 % (0-3); EOS # 0.2 x10^3/uL (0.0-0.7); EOS % 4 % (0-3); HEMOGLOBIN 12.2 g/dL (12.0-15.5); LYMPH % 17 % (24-48); MEAN CORPUSCULAR HEMOGLOBIN 30 pg (25-35); MEAN CORPUSCULAR HGB CONC 33 g/dL (31-37); MEAN CORPUSCULAR VOLUME 90 fL (79-100); MONO # 0.5 x10^3/uL (0.0-1.1); MONO % 8 % (0-9); NEUT # 4.1 x10^3/uL (1.8-7.7); NEUT % 70 % (31-73); PLATELET COUNT 244 x10^3/uL (140-400); RED BLOOD COUNT 4.12 x10^6/uL (3.50-5.40); RED CELL DISTRIBUTION WIDTH 14.9 % (11.5-14.5); WHITE BLOOD COUNT 5.8 x10^3/uL (4.0-11.0)
[2021-08-25 08:13] LABS: ALBUMIN 3.7 g/dL (3.4-5.0); CREATININE 0.7 mg/dL (0.6-1.0); GFR 87.5; POTASSIUM 4.8 mmol/L (3.5-5.1); TOTAL BILIRUBIN 0.6 mg/dL (0.2-1.0); TOTAL PROTEIN 7.5 g/dL (6.4-8.2)
== END ==
LOC: LAB 07:29
PROVIDERS: ATTEND Internal Medicine Hematology & Oncology
DX: C50.412 Malignant neoplasm of upper-outer quadrant of left female breast (principal); Z17.0 Estrogen receptor positive status [ER+]
CPT/HCPCS: 36415; 80053; 85025; 86300

== ENCOUNTER 2021-11-26 17:36 | Inpatient (IN) | payer OTHER ==
[~2021-11-26] VITALS: Ht 170.2 cm; Wt 146.9 kg
[~2021-11-26 17:36] MED LIST changes: -MOME17SP NS; +MOME17SP5 NS
--- NOTE | 2021-11-26 18:25 | PHYS DOC ---
General Adult EDM: Chief Complaint: LOWER EXTREMITY SWELLING HPI: HPI: Patient is a 51 year old female who presents with left lower extremity pain, which reportedly only began a few days ago. A few weeks ago, she had surgery at [facility]. She had a revision of a CSF leak. She reports that she subsequently went to have a left lower extremity venous Doppler performed at [facility], they were able to scan part of her leg, noticed that she had what appeared to be an extensive DVT, told her to go to the ER. She reports for the past several days she has had progressively worsening dyspnea, especially with exertion. She denies chest pain. She denies fevers or chills. She admits that she actually has bilateral lower extremity pain. She has chronic swelling, but she has not noticed any significant increase swelling. No redness. No fall or injury. She reports having a family history of Antithrombin III. She reportedly was tested for this as an outpatient years ago, and she indicates that essentially the test seem to be equivocal, and no treatment was initiated. She has not previously had any known thrombophilia, denies any history of CVA, HI, PE or DVT. She does report that the surgery lasted 8 hours, but she was able to ambulate and move around shortly thereafter. She is not currently taking any anticoagulants. She denies taking any exogenous hormones or estrogen. Denies smoking history. Denies recent travel history. No long recent hospitalization. No other recent surgeries besides the aforementioned. Review of Systems: Review of Systems: Constitutional: Denies fever or chills. [] HENT: Denies nasal congestion or sore throat. [] Respiratory: Dyspnea, dyspnea on exertion. Denies wheezing, cough, hemoptysis. Cardiovascular: Denies chest pain. Dyspnea on exertion, lower extremity edema GI: Denies abdominal pain, nausea, vomiting, bloody stools or diarrhea. [] : Denies dysuria. [] Musculoskeletal: Denies back pain or joint pain. Bilateral lower extremity pain, left worse than right Integument: Denies rash. [] Neurologic: Denies headache, focal weakness or sensory changes. Denies dizz iness or syncope. Psychiatric: Denies depression or anxiety. [] Heart Score: C/O Chest Pain: No Risk Factors: Risk Factors: DM, Current or recent (<one month) smoker, HTN, HLP, family history of CAD, obesity. Risk Scores: Score 0 - 3: 2.5% MACE over next 6 weeks - Discharge Home Score 4 - 6: 20.3% MACE over next 6 weeks - Admit for Clinical Observation Score 7 - 10: 72.7% MACE over next 6 weeks - Early Invasive Strategies Allergies: Allergies: Allergies Coded Allergies Type Severity Reaction Last Updated Verified No Known Drug Allergies 10/12/18 No Physical Exam: PE: Constitutional: Well developed, well nourished, no acute distress, non-toxic appearance. [] HENT: Normocephalic, atraumatic, oropharynx patent and clear, mucous membranes are. External implant noted on the left parietal scalp. No warmth or erythema, no tenderness. No otorrhea noted. Eyes: Conjunctiva normal, no discharge. [] Neck: Normal range of motion, no tenderness, supple, no stridor. Trachea midline, no JVD. Cardiovascular: Tachycardic, regular, +2 radial and +2 dorsalis pedis pulses bilateral Lungs & Thorax: Bilateral breath sounds clear to auscultation, very mild tachypnea, no rales, rhonchi or wheezes. Mildly diminished breath sounds in bilateral bases. No evidence of respiratory distress. Speaks in full clear sentences but no cyanosis Abdomen: Abdomen is soft, nondistended, nontender to palpation Skin: Warm, dry, no erythema, no rash. [] Back: No tenderness, no CVA tenderness. [] Extremities: No tenderness, no cyanosis, no clubbing, ROM intact. Bilateral lower extremity nonpitting edema. Left calf tenderness. There is no evidence of any discoloration, rubor, duskiness. No palpable cords noted. Neurologic: Alert and oriented X 3, normal motor function, normal sensory function, no focal deficits noted. [] Psychologic: Mildly anxious but very pleasant cooperative. EKG: EKG: EKG is interpreted at 1829 Rhythm is sinus tachycardia Rate is 117 bpm [place] is normal No STEMI Radiology/Procedures: Radiology/Procedures: IMAGING REPORT Signed PATIENT: ANNA FERGUSON ACCOUNT: [id number] : 1970 LOCATION: ER AGE: 51 SEX: F EXAM STATUS: REG ER ORD. PHYSICIAN: GEORGIE ANNE DO REASON: LE swelling, dvt seen on LLE PROCEDURE: VENOUS LOWER EXT BILATERAL EXAM: Bilateral lower extremity venous Doppler. HISTORY: Bilateral lower extremity pain/swelling. COMPARISON: None. FINDINGS: Grayscale and Doppler analysis of the both lower extremity deep venous systems was performed with graded compression and augmentation. The common femoral, greater saphenous, superficial femoral, popliteal and calf veins were assessed. On the right, deep venous thrombosis is nonocclusive within the common femoral vein and occlusive within the superficial femoral and popliteal veins. On the left, deep venous thrombosis is occlusive within the superficial femoral and popliteal veins. IMPRESSION: 1. Bilateral occlusive deep venous thrombosis as above. These findings were called to Dr. Anne by Triston Palomino on 11/26/2021 at 8:20 PM. Electronically signed by: Lakhwinder Palomino MD (11/26/2021 8:21 PM) [facility] DICTATED and SIGNED BY: ABDIRAHMAN PALOMINO MD DATE: 11/26/[id number] 0 IMAGING REPORT Signed PATIENT: ANNA FERGUSON ACCOUNT: [id number] : 1970 LOCATION: ER AGE: 51 SEX: F EXAM STATUS: REG ER ORD. PHYSICIAN: GEORGIE ANNE DO REASON: dyspnea PROCEDURE: PORTABLE CHEST 1V Exam Date: 11/26/2021 7:10 PM XR CHEST 1V Indication: Reason: dyspnea / Spl. Instructions: / History: . FINDINGS/ IMPRESSION: The cardiac silhouette and pulmonary vasculature are within normal limits. There is no focal consolidation, pleural effusion or pneumothorax. The visualized osseous structures are intact. Electronically signed by: Lewis Suazo MD (11/26/2021 9:16 PM) [facility] DICTATED and SIGNED BY: LEWIS SUAZO MD DATE: 11/26/[id number] 0 IMAGING REPORT Signed PATIENT: ANNA FERGUSON ACCOUNT: [id number] : 1970 LOCATION: [address] [place] [address] AGE: 51 SEX: F EXAM STATUS: ADM IN ORD. PHYSICIAN: GEORGIE ANNE DO REASON: dvt, tachycardia, dyspnea, OMNI 350 100 ML IV PROCEDURE: CT ANGIOGRAPHY CHEST Exam: CT chest with contrast INDICATION: DVT, tachycardia, dyspnea TECHNIQUE: Sequential axial images through the chest obtained following the administration of 100 mL of Omni 350 IV contrast. Sagittal and coronal reformatted images were reconstructed from the axial data and reviewed. 3-D reformatted images were reconstructed from the axial data and reviewed. Exposure: One or more of the following in the visualized dose reduction techniques were utilized for this examination: 1. Automated exposure control 2. Adjustment of the MA and/or KV according to patient size 3. Use of iterative of reconstructive technique Comparisons: Chest x-ray same day FINDINGS: Visualized portions of the thyroid are unremarkable. No enlarged mediastinal lymph nodes are identified. Heart size is normal. No pericardial effusion. Thoracic aorta has normal course and caliber. Pulmonary artery is not enlarged. Stents of bilateral pulmonary emboli extending from the right main and left main pulmonary arteries into lobar and segmental branches. Airways are patent. No consolidation or pneumothorax. No suspicious lung nodules. No pleural effusion or thickening. Visualized upper abdomen is unremarkable. No suspicious osseous lesions or acute fractures. IMPRESSION: Extensive bilateral pulmonary emboli extending from the right and left main pulmonary artery into lobar and segmental branches. FOR INTERNAL CODING PURPOSES Critical result: Findings discussed with GEORGIE ANNE DO at 11/26/2021 9:37 PM. RESULT CODE: (C) Electronically signed by: Sasha Arce MD (11/26/2021 9:42 PM) [facility] DICTATED and SIGNED BY: SASHA ARCE MD DATE: 11/26/21 [id number] 0 Course & Med Decision Making: Course & Med Decision Making Pertinent Labs and Imaging studies reviewed. (See chart for details) IV heparin protocol initiated. The patient is not hypoxic, manifest evidence of respiratory distress. Bilateral venous Dopplers demonstrate extensive bilateral DVT. Multiple pulmonary emboli noted on chest CT angio. I discussed the findings, differential diagnosis and plan of care with her. I explained my recommendation for hospitalization admission. She agrees with this. She is excepted for admission by Dr. Mcbride. Yissel Disclaimer: Yissel Disclaimer: This electronic medical record was generated, in whole or in part, using a voice recognition dictation system. Departure Departure Impression: Primary Impression: Acute deep vein thrombosis of both lower extremities Qualified Codes: I82.403 - Acute embolism and thrombosis of unspecified deep veins of lower extremity, bilateral Additional Impression: Pulmonary emboli Qualified Codes: I26.99 - Other pulmonary embolism without acute cor pulmonale Disposition: ADMITTED INPATIENT Admitting Physician: Deonna Mcbride Condition: GUARDED Referrals: DEONNA MCBRIDE MD (PCP) GEORGIE ANNE DO Nov 26, 2021 18:25
[2021-11-26] MEDS ORDERED: HEPARIN for IV BOLUS 10,000 UNIT/10 ML VIAL. IV PRN ×2 (20:00)
--- NOTE | 2021-11-26 20:23 | RAD ---
EXAM: Bilateral lower extremity venous Doppler. HISTORY: Bilateral lower extremity pain/swelling. COMPARISON: None. FINDINGS: Grayscale and Doppler analysis of the both lower extremity deep venous systems was performe d with graded compression and augmentation. The common femoral, greater saphenous, superficial femora l, popliteal and calf veins were assessed. On the right, deep venous thrombosis is nonocclusive within the common femoral vein and occlusive wit hin the superficial femoral and popliteal veins. On the left, deep venous thrombosis is occlusive within the superficial femoral and popliteal veins. IMPRESSION: 1. Bilateral occlusive deep venous thrombosis as above. These findings were called to Dr. Canada by Triston Palomino on 11/26/2021 at 8:20 PM. Electronically signed by: Lakhwinder Palomino MD (11/26/2021 8:21 PM) [facility]
[2021-11-26 20:29] LABS: BASO # 0.1 x10^3/uL (0.0-0.2); BASO % 1 % (0-3); EOS # 0.1 x10^3/uL (0.0-0.7); EOS % 1 % (0-3); HEMATOCRIT 35.7 % (36.0-47.0); HEMOGLOBIN 11.4 g/dL (12.0-15.5); LYMPH % 8 % (24-48); MEAN CORPUSCULAR HEMOGLOBIN 29 pg (25-35); MEAN CORPUSCULAR HGB CONC 32 g/dL (31-37); MEAN CORPUSCULAR VOLUME 89 fL (79-100); MONO % 8 % (0-9); NEUT % 81 % (31-73); PLATELET COUNT 197 x10^3/uL (140-400); RED BLOOD COUNT 3.99 x10^6/uL (3.50-5.40); RED CELL DISTRIBUTION WIDTH 14.7 % (11.5-14.5); WHITE BLOOD COUNT 12.3 x10^3/uL (4.0-11.0)
[2021-11-26 20:40] LABS: CALCIUM 8.9 mg/dL (8.5-10.1); CREATININE 0.9 mg/dL (0.6-1.0); GFR 65.5; POTASSIUM 4.8 mmol/L (3.5-5.1)
[2021-11-26 20:46] LABS: ALBUMIN 3.9 g/dL (3.4-5.0); ALBUMIN/GLOBULIN RATIO 0.9 (1.0-1.7); MAGNESIUM 2.2 mg/dL (1.8-2.4); TOTAL BILIRUBIN 0.5 mg/dL (0.2-1.0); TOTAL PROTEIN 8.1 g/dL (6.4-8.2)
[2021-11-26] MEDS ORDERED: IOHEXOL 350 MG/ML 100 ML VIAL. IV ONE (21:00)
--- NOTE | 2021-11-26 21:18 | RAD ---
Exam Date: 11/26/2021 7:10 PM XR CHEST 1V Indication: Reason: dyspnea / Spl. Instructions: / History: . FINDINGS/ IMPRESSION: The cardiac silhouette and pulmonary vasculature are within normal limits. There is no focal consolidation, pleural effusion or pneumothorax. The visualized osseous structures are intact. Electronically signed by: Miller Suazo MD (11/26/2021 9:16 PM) [facility]
--- NOTE | 2021-11-26 21:44 | RAD ---
Exam: CT chest with contrast INDICATION: DVT, tachycardia, dyspnea TECHNIQUE: Sequential axial images through the chest obtained following the administration of 100 mL of Omni 350 IV contrast. Sagittal and coronal reformatted images were reconstructed from the axial da ta and reviewed. 3-D reformatted images were reconstructed from the axial data and reviewed. Exposure: One or more of the following in the visualized dose reduction techniques were utilized for this examination: 1. Automated exposure control 2. Adjustment of the MA and/or KV according to patient size 3. Use of iterative of reconstructive technique Comparisons: Chest x-ray same day FINDINGS: Visualized portions of the thyroid are unremarkable. No enlarged mediastinal lymph nodes are identifi ed. Heart size is normal. No pericardial effusion. Thoracic aorta has normal course and caliber. Pulmonar y artery is not enlarged. Stents of bilateral pulmonary emboli extending from the right main and left main pulmonary arteries into lobar and segmental branches. Airways are patent. No consolidation or pneumothorax. No suspicious lung nodules. No pleural effusion or thickening. Visualized upper abdomen is unremarkable. No suspicious osseous lesions or acute fractures. IMPRESSION: Extensive bilateral pulmonary emboli extending from the right and left main pulmonary artery into lob ar and segmental branches. FOR INTERNAL CODING PURPOSES Critical result: Findings discussed with GEORGIE ANNE DO at 11/26/2021 9:37 PM. RESULT CODE: (C) Electronically signed by: Sasha Meyer MD (11/26/2021 9:42 PM) [facility]
[2021-11-26] MEDS: HEPARIN 25,000UTS/250ML PREMIX 250 ML IV PRN (21:45)
[2021-11-26] MEDS ORDERED: fentaNYL PF VIAL 100 MCG/2 ML VIAL IVP PRN (21:45)
[2021-11-26] MEDS ORDERED: ONDANSETRON PF 4 MG/2 ML VIAL. IVP PRN (21:45)
[2021-11-26] MEDS ORDERED: IV NORMAL SALINE 1000ML BAG 1,000 ML IV SCH (22:00)
[2021-11-26 22:38] VITALS: BP 143/84
[2021-11-26] MEDS ORDERED: LOSA100T14 PO (22:58)
[2021-11-26] MEDS ORDERED: ACET500T33 PO (22:58)
[2021-11-26] MEDS ORDERED: AMOX1TAB11 PO (22:58)
[2021-11-26] MEDS ORDERED: FAMO20TA5 PO (22:58)
--- NOTE | 2021-11-27 01:38 | EKG ---
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
[2021-11-27 03:06] VITALS: BP 152/78
[2021-11-27] MEDS: ACETAMINOPHEN 325 MG TABLET. PO PRN ×2 (03:18→12:58)
[2021-11-27 07:00] VITALS: BP 115/75
[2021-11-27] MEDS: HEPARIN 25,000UTS/250ML PREMIX 250 ML IV PRN ×2 (08:18→20:44)
[2021-11-27 11:00] VITALS: BP 150/80
[2021-11-27] MEDS ORDERED: ACETAMINOPHEN 500 MG TABLET PO PRN (12:15)
[2021-11-27] MEDS ORDERED: ZOLPIDEM 5 MG TABLET. PO PRN (12:15)
--- NOTE | 2021-11-27 12:25 | PDOC ---
Provider Note Date of Service: DATE: 11/27/21 TIME: 12:24 Provider Note Pt seen .H&P dictated.#[id number]. Justifications for Admission Other Justification SHIRLEY MCBRIDE MD Nov 27, 2021 12:25
[2021-11-27] MEDS ORDERED: LOSARTAN POTASSIUM 50 MG TABLET. PO SCH (12:30)
[2021-11-27] MEDS: LOSARTAN POTASSIUM 50 MG TABLET. PO SCH (12:30)
[2021-11-27] MEDS: ANASTROZOLE 1 MG TABLET PO SCH (12:31)
[2021-11-27] MEDS: AMOXICILLIN/K CLAV 875/125MG TABLET. PO SCH ×2 (12:32→20:30)
[2021-11-27] MEDS: PANTOPRAZOLE 40 MG TABLET.DR. PO SCH (12:46)
[2021-11-27] MEDS ORDERED: LANSOPRAZOLE 30 MG TAB.RAP.DR PO SCH (13:00)
--- NOTE | 2021-11-27 13:51 | RAD ---
CT head without contrast dated 11/27/2021 1:42 PM Comparison: 12/21/2020 CLINICAL INDICATION: Postop TECHNIQUE: Contiguous axial imaging of the head was performed from skull base to vertex. One or more of the following individualized dose reduction techniques were utilized for this examinat ion: 1. Automated exposure control 2. Adjustment of the mA and/or kV according to patient size 3. Use of iterative reconstruction technique. FINDINGS: There has been interval left temporal craniotomy. Focal zone of encephalomalacia in the left temporal lobe deep to the craniotomy site, new from prior study. There is a small mixed density extra-axial c ollection deep to the craniotomy site that measures about 5 mm maximum dimension. No large extra-axia l collection or significant mass effect. The ventricles and sulci are stable. No midline shift. Poste rior fossa and brainstem unremarkable. Visualized paranasal sinuses are clear. There has been interval mastoidectomy on the left. Partial op acification the right middle ear, unchanged. IMPRESSION: 1. Interval left mastoidectomy and left temporal craniotomy with focal encephalomalacia in the left t emporal lobe. 2. There is a thin hypodense heterogeneous collection deep to the craniotomy site, possibly a small a mount of postoperative fluid and/or hemorrhage. No large extra-axial collection, mass effect or midli ne shift. Electronically signed by: Eliel Lopez MD (11/27/2021 1:48 PM) [facility]
[2021-11-27 14:58] VITALS: BP 134/58
[2021-11-27] MEDS ORDERED: WARFARIN 7.5 MG TABLET. PO ONE (16:00)
[2021-11-27 18:35] VITALS: BP 119/71
--- NOTE | 2021-11-27 20:17 | HP ---
DATE OF SERVICE: 11/27/2021 ADMIT DATE: 11/26/2021 MEDICAL HISTORY AND PHYSICAL REASON FOR ADMISSION TO THE HOSPITAL: DVT and pulmonary embolism. HISTORY OF PRESENT ILLNESS: The patient is a 51-year-old female. The patient had a CSF leakage to the left ear, had seen Neurosurgery and ENT, had a surgery done at [facility] 2 weeks ago and where they had to close the CSF leak. Then, she was in the hospital for 2 days and she was discharged 2 weeks ago. The patient has noticed some swelling in the leg and the patient talked to her Neurosurgery and they recommended to get a Doppler. The Doppler was positive for DVT. Recommend get admission to the hospital, came to [place]. 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 She was seen in the ER, had a bilateral venous Doppler positive and pulmonary. Her CT angiogram shows bilateral pulmonary embolism. The patient was admitted to the hospital on heparin drip. Surprisingly, her oxygen is good at 99 on room air. PAST MEDICAL HISTORY: The patient, as mentioned recently, had a CSF leak into the left ear, was repaired by Neurosurgery at [facility] 2 weeks ago. She also has a history of breast cancer and reconstructive surgery. She has a history of asthma, has allergies and reflux. MEDICATIONS AT HOME: The patient was on Augmentin from the ear surgery and she had vaccination for meningitis, pneumonia prophylaxis before the ear surgery. Augmentin 1 tablet twice a day, anastrozole 1 mg for breast cancer, Pepcid 20 mg daily, lansoprazole 15 mg daily, losartan 100 mg daily, Singulair 10 mg daily. PERSONAL HISTORY: Denies smoking or alcohol. FAMILY HISTORY: Positive for extensive DVT, pulmonary embolism in sister and brother. REVIEW OF SYMPTOMS: Has some pain in the leg, a little bit of hard of hearing because of the ear surgery. PHYSICAL EXAMINATION: GENERAL: Otherwise, the patient is not in any distress. VITAL SIGNS: At the time of admission shows temperature 98, pulse 82, respirations 20, blood pressure 157/76, 98 on room air. HEENT: Head is atraumatic. She had a little bit of scar in the ____ left ear from recent ear surgery for CSF leak, a little bit hard of hearing on the left side. Oral cavity, no congestion. NECK: Supple. CHEST: Symmetrical. CARDIOVASCULAR: S1, S2. LUNGS: Clear. ABDOMEN: Soft, bowel sounds are present. No mass palpable. The patient had a mastectomy in the left as well as she had a surgery on the right. EXTERNAL GENITALIA: No Kumari. RECTUM: Deferred. EXTREMITIES: The patient has some large calves, nontender. Bowel sounds are present. NEUROLOGIC: Cranial nerves intact. Power 5/5 in all extremities. LABORATORY DATA: Shows a white count of 12.3, hemoglobin 11, platelets 197. INR 1.1. Electrolytes show sodium 143, potassium 4.8, chloride 103, bicarb 28, BUN 11, creatinine 0.9, glucose 116. LFTs normal. Had a chest x-ray negative. Venous Doppler bilateral DVT, extensive CT angiogram shows bilateral pulmonary embolisms, extensive. FINAL IMPRESSION: 1. Pulmonary embolism. 2. Bilateral deep venous thrombosis. 3. Strong family history of blood clots in the family. 4. Recent surgery on the left ear and cranium for CSF leak into the left ear. 5. History of breast cancer, had a reconstructive surgery and on Arimidex. 6. Gastroesophageal reflux disease. 7. Obesity. PLAN: At this time, was admitted to the hospital, heparin drip and probably overlapped with Coumadin. Hematology consult. Pulmonary consult and see how she improves. The patient's oxygen is good, 98% on room air. The patient probably needs to be on anticoagulation lifelong with a strong family history of DVT and PE. JACQUI DR: Devan TID: [id number]
[2021-11-27] MEDS: FAMOTIDINE 20 MG TABLET. PO SCH (20:30)
[2021-11-27] MEDS: MONTELUKAST SODIUM 10 MG TABLET. PO SCH (20:30)
[2021-11-27 22:45] VITALS: BP 121/67
[2021-11-28] MEDS: ACETAMINOPHEN 325 MG TABLET. PO PRN ×2 (02:33→08:24)
[2021-11-28 02:55] VITALS: BP 129/65
[2021-11-28 06:07] LABS: BASO # 0.1 x10^3/uL (0.0-0.2); BASO % 1 % (0-3); EOS # 0.3 x10^3/uL (0.0-0.7); EOS % 3 % (0-3); HEMATOCRIT 33.5 % (36.0-47.0); HEMOGLOBIN 10.8 g/dL (12.0-15.5); LYMPH # 1.4 x10^3/uL (1.0-4.8); LYMPH % 13 % (24-48); MEAN CORPUSCULAR HEMOGLOBIN 29 pg (25-35); MEAN CORPUSCULAR HGB CONC 32 g/dL (31-37); MEAN CORPUSCULAR VOLUME 90 fL (79-100); MONO % 9 % (0-9); NEUT # 7.8 x10^3/uL (1.8-7.7); NEUT % 74 % (31-73); PLATELET COUNT 248 x10^3/uL (140-400); RED BLOOD COUNT 3.71 x10^6/uL (3.50-5.40); RED CELL DISTRIBUTION WIDTH 14.7 % (11.5-14.5); WHITE BLOOD COUNT 10.6 x10^3/uL (4.0-11.0)
[2021-11-28 06:45] VITALS: BP 141/69
[2021-11-28] MEDS: PANTOPRAZOLE 40 MG TABLET.DR. PO SCH (07:53)
[2021-11-28] MEDS: AMOXICILLIN/K CLAV 875/125MG TABLET. PO SCH ×2 (07:53→21:45)
[2021-11-28] MEDS: LOSARTAN POTASSIUM 50 MG TABLET. PO SCH (07:54)
[2021-11-28] MEDS: ANASTROZOLE 1 MG TABLET PO SCH (08:25)
--- NOTE | 2021-11-28 08:50 | CONS ---
DATE OF CONSULTATION: 11/28/2021 REASON FOR CONSULTATION: I was asked to see this 51-year-old female for DVT and pulmonary embolism. HISTORY OF PRESENT ILLNESS: She had CSF leakage to the left ear, had a surgery by Neurosurgery and ENT at [facility] about 2 weeks ago. She has had shortness of breath since then. She had a lower extremity venous Doppler on , was found to have a DVT. She presented to Emergency Room, admitted for further evaluation. She had a CT angiogram done, which did show bilateral extensive pulmonary embolism. She does have shortness of breath. She is on room air, O2 saturation is 95%. She denies chest pain or cough. She does have a sleep apnea, does use her CPAP. Has not used it for the past 2 weeks since she had surgery. PAST MEDICAL HISTORY: Obstructive sleep apnea-hypopnea syndrome, factor V Leiden deficiency, family history of thromboembolic disease, recent extensive ear surgery for CSF leak and ear cyst, history of breast cancer and reconstructive surgery, gastroesophageal reflux disease. ALLERGIES: No known drug allergies. MEDICATIONS: Currently, she is on heparin drip, Pepcid, Protonix, Coumadin. SOCIAL HISTORY: She is a lifelong nonsmoker. FAMILY HISTORY: Positive for thromboembolic disease. REVIEW OF SYSTEMS: As mentioned as above, other systems otherwise negative. PHYSICAL EXAMINATION: GENERAL: This is an obese lady. VITAL SIGNS: Her O2 saturation is 95% on room air, respiratory rate 20, heart rate 87, blood pressure 141/69, temperature 99. HEENT: Normocephalic, atraumatic. Pupils equal, round, reactive to light. Throat is clear. There is shallow oropharynx. Nose is clear. NECK: There is no JVD, lymphadenopathy or thyromegaly. CARDIOVASCULAR: Regular rate and rhythm. CHEST: Inspection is normal. LUNGS: Clear to auscultation bilaterally. ABDOMEN: Soft and obese. Bowel sounds are good. EXTREMITIES: There is edema, chronic changes. LYMPHATICS: There is no lymphadenopathy. NEUROLOGIC: Alert and oriented. LABORATORY DATA: I reviewed the following lab data. CT angiogram as mentioned as above. Lower extremity venous Doppler showed bilateral occlusive DVT. WBC 10.6, hemoglobin 10.8, platelets 248. Sodium 143, potassium 4.8, chloride 103, CO2 of 28, BUN 11, creatinine 0.9. BNP 37. Troponin 6. IMPRESSION: 1. Shortness of breath secondary to extensive pulmonary embolism. 2. Bilateral extensive pulmonary embolism. 3. Bilateral deep venous thrombosis. 4. Obstructive sleep apnea-hypopnea syndrome. 5. Factor V Leiden deficiency. 6. History of breast cancer, status post reconstructive surgery, on Arimidex. 7. Gastroesophageal reflux disease. 8. recent ear surgery PLAN AND RECOMMENDATIONS: 1. Titrate FiO2 to keep O2 saturation 92%. 2. Agree with heparin. 3. Agree with Coumadin. Her BMI is 50, so she is not a candidate for DOAC. 4. I consulted Dr. Everett interventional radiologist to review the CT of the chest as the patient has large clot burden to see if the patient is a candidate for thrombectomy. he reviewed cta and stated she might be a candidate for thrombectomy he will discuss w dr brantley 5. Protonix for gastroesophageal reflux disease. 6. Lose weight. 7. Use CPAP during sleep. I have discussed obstructive sleep apnea-hypopnea syndrome. The importance of treatment if untreated increased cardiovascular and LAYOUT ARTIST morbidity and mortality. 8. I will order echocardiogram. Thank you very much for allowing me to participate in the care of this very nice lady. The findings and recommendations were discussed with the patient and RN. ANNELISE DR: Ellis TID: [id number] JESSE
--- NOTE | 2021-11-28 09:49 | PDOC ---
IM PROGRESS NOTES- Subjective Subjective No complaints of pain. Dyspnea is improving. Objective Vitals/I&O Vital Signs Date Time Temp Pulse Resp B/P (MAP) Pulse Ox O2 Delivery O2 Flow Rate FiO2 11/28/21 07:54 87 141/69 11/28/21 06:45 99.0 20 95 Room Air 99.0 I & O 0 11/27/21 11/27/21 11/28/21 15:00 23:00 07:00 Intake Total 480 ml 237 ml 865.5 ml Output Total 200 ml 200 ml Balance 480 ml 37 ml 665.5 ml Physical Exam Physical Exam General Appearance - alert and in no distress Chest - decreased breath sounds at bases Heart - S1 and S2 normal Abdomen - soft, non tender Neurological - alert and oriented Musculoskeletal - generalized weakness Extremities -edema + Labs Laboratory Tests Test 11/27/21 15:57 11/27/21 22:15 11/28/21 05:15 11/28/21 08:40 Heparin Anti-Xa Act, Unfractionated 0.63 IU/mL (0.30-0.70) 0.72 IU/mL (0.30-0.70) H 0.74 IU/mL (0.30-0.70) H White Blood Count 10.6 x10^3/uL (4.0-11.0) Red Blood Count 3.71 x10^6/uL (3.50-5.40) Hemoglobin 10.8 g/dL (12.0-15.5) L Hematocrit 33.5 % (36.0-47.0) L Mean Corpuscular Volume 90 fL (79-100) Mean Corpuscular Hemoglobin 29 pg (25-35) Mean Corpuscular Hemoglobin Concent 32 g/dL (31-37) Red Cell Distribution Width 14.7 % (11.5-14.5) H Platelet Count 248 x10^3/uL (140-400) Neutrophils (%) (Auto) 74 % (31-73) H Lymphocytes (%) (Auto) 13 % (24-48) L Monocytes (%) (Auto) 9 % (0-9) Eosinophils (%) (Auto) 3 % (0-3) Basophils (%) (Auto) 1 % (0-3) Neutrophils # (Auto) 7.8 x10^3/uL (1.8-7.7) H Lymphocytes # (Auto) 1.4 x10^3/uL (1.0-4.8) Monocytes # (Auto) 1.0 x10^3/uL (0.0-1.1) Eosinophils # (Auto) 0.3 x10^3/uL (0.0-0.7) Basophils # (Auto) 0.1 x10^3/uL (0.0-0.2) SARS-CoV-2 Antigen (Rapid) Negative (NEGATIVE) Laboratory Tests 11/28/21 05:15 Meds Current Medications Medications (Trade) Dose Ordered Sig/Alicia Route PRN Reason Start Time Stop Time Status Last Admin Dose Admin Warfarin Sodium (Coumadin) 7.5 mg 1X WARF ONCE PO 11/27/21 16:00 11/27/21 16:01 DC 11/27/21 15:54 Amoxicillin/ Clavulanate Potassium (Augmentin 875/ 125mg) 1 tab BID PO 11/27/21 13:00 11/28/21 07:53 Anastrozole (Arimidex) 1 mg DAILY PO 11/27/21 13:00 11/28/21 08:25 Famotidine (Pepcid) 20 mg HS PO 11/27/21 21:00 11/27/21 20:30 Montelukast Sodium (Singulair) 10 mg HS PO 11/27/21 21:00 11/27/21 20:30 Lansoprazole (Prevacid) 30 mg DAILY08 PO 11/27/21 13:00 11/27/21 12:43 DC 11/27/21 12:31 Losartan Potassium (Cozaar) 100 mg DAILY PO 11/27/21 13:00 11/28/21 07:54 Pantoprazole Sodium (Protonix) 40 mg DAILY PO 11/27/21 12:45 11/28/21 07:53 Assessment Assessment 1. Pulmonary embolism. 2. Bilateral deep venous thrombosis. 3. Strong family history of blood clots in the family. 4. Recent surgery on the left ear and cranium for CSF leak into the left ear. 5. History of breast cancer, had a reconstructive surgery and on Arimidex. 6. Gastroesophageal reflux disease. 7. Obesity. PLAN: At this time, was admitted to the hospital, heparin drip and probably overlapped with Coumadin. Hematology consult. Pulmonary consult and see how she improves. The patient's oxygen is good, 98% on room air. The patient probably needs to be on anticoagulation lifelong with a strong family history of DVT and PE. Acute pulmonary embolism. Dr. Kirk Bee has consulted radiologist to see if there is any necessity for radiology intervention because of high clot burden. Continue IV heparin drip and oral Coumadin. Recent brain surgery to fix CSF leak. The neurosurgeon had concerns about use of anticoagulation as the surgery was about [address] scan of head without contrast on 27 November 1. Interval left mastoidectomy and left temporal craniotomy with focal encephalomalacia in the left temporal lobe. 2. There is a thin hypodense heterogeneous collection deep to the craniotomy si te, possibly a small amount of postoperative fluid and/or hemorrhage. No large extra-axial collection, mass effect or midline shift. Plan Plan For more details regarding further plans, please refer to the orders. Justifications for Admission Other Justification ANN CORDOVA MD Nov 28, 2021 09:49
[2021-11-28 10:14] LABS: PROTHROMBIN TIME PATIENT 14.2 SEC (11.7-14.0)
[2021-11-28 11:00] VITALS: BP 133/67
--- NOTE | 2021-11-28 12:25 | NUR ---
Pharmacy Warfarin Dosing Note S:Pharmacy consulted to assist with anticoagulation therapy started with target INR: 2 -3 O:ANNA FERGUSON is a 51 year old F with DVT/PE LABS: Last INR: 1.1 Last HGB: 10.8 Last HCT: 33.5 Last PLT: 248 Last dose of 7.5 mg given on 11/27/21 at 1554 Previous Regimen: Vitamin K given: Drug Interaction Changes: Ongoing Drug Interactions: A:INR of 1.1 is below desired range. Target range for this patient is: 2 -3 P: Warfarin dose: 7.5 mg Today at 1600 Bridge Therapy: Heparin Therapeutic CONT Next INR due 11/29/21. Pharmacy anticoagulation service will continue to follow. HEIDE FUNK [facility], 11/28/21 [id number]
[2021-11-28 15:00] VITALS: BP 113/76
[2021-11-28] MEDS ORDERED: WARFARIN 7.5 MG TABLET. PO ONE (16:00)
[2021-11-28 18:38] VITALS: BP 135/76
--- NOTE | 2021-11-28 19:58 | PDOC4 ---
IR NOTE: IR called about DVT/PE. patient is not hypotensive and is on O2 with sats in the 90s. suggestion of RV strain on CT. d/w Dr. Bradley. At this point best treatment is anticoagulation. Mechanical thrombectomy could be considered if worsening but may require a transfer as this procedure may not be available at [facility]. Please check with Dr. Richards in AM if further IR input is needed. SORAYA MARIO MD Nov 28, 2021 19:58
[2021-11-28] MEDS: MONTELUKAST SODIUM 10 MG TABLET. PO SCH (21:45)
[2021-11-28] MEDS: LACTOBACILLUS RHAMNOSUS GG 1 CAPSULE. PO SCH (21:45)
[2021-11-28] MEDS: FAMOTIDINE 20 MG TABLET. PO SCH (21:45)
[2021-11-28] MEDS: HEPARIN 25,000UTS/250ML PREMIX 250 ML IV PRN (22:20)
[2021-11-28 22:50] VITALS: BP 117/62
[2021-11-29 03:15] VITALS: BP 112/64
[2021-11-29 05:15] LABS: BASO # 0.1 x10^3/uL (0.0-0.2); BASO % 1 % (0-3); EOS # 0.2 x10^3/uL (0.0-0.7); EOS % 2 % (0-3); HEMATOCRIT 34.3 % (36.0-47.0); HEMOGLOBIN 11.2 g/dL (12.0-15.5); LYMPH # 1.3 x10^3/uL (1.0-4.8); LYMPH % 13 % (24-48); MEAN CORPUSCULAR HEMOGLOBIN 29 pg (25-35); MEAN CORPUSCULAR HGB CONC 33 g/dL (31-37); MEAN CORPUSCULAR VOLUME 90 fL (79-100); MONO # 0.8 x10^3/uL (0.0-1.1); MONO % 8 % (0-9); NEUT # 7.8 x10^3/uL (1.8-7.7); NEUT % 76 % (31-73); PLATELET COUNT 311 x10^3/uL (140-400); RED BLOOD COUNT 3.81 x10^6/uL (3.50-5.40); RED CELL DISTRIBUTION WIDTH 14.8 % (11.5-14.5); WHITE BLOOD COUNT 10.3 x10^3/uL (4.0-11.0)
[2021-11-29 05:20] LABS: PROTHROMBIN TIME PATIENT 14.3 SEC (11.7-14.0)
[2021-11-29 05:22] LABS: UNFRACTIONATED HEPARIN TESTING 0.56 IU/mL (0.30-0.70)
[2021-11-29 05:28] LABS: CALCIUM 8.7 mg/dL (8.5-10.1); CREATININE 0.8 mg/dL (0.6-1.0); POTASSIUM 3.9 mmol/L (3.5-5.1)
[2021-11-29 07:00] VITALS: BP 136/73
--- NOTE | 2021-11-29 08:08 | NUR ---
left message with Dr Jmienez's office to return call in regards to a consultation. [facility] 6S phone number left.
--- NOTE | 2021-11-29 08:22 | PDOC ---
PULMONARY PROGRESS NOTES DATE: 11/29/21 TIME: 08:21 Subjective The patient was in a pleasant mood on exam this morning, no overnight events, currently on room, denies SOA, denies new cough Vitals Vital Signs Date Time Temp Pulse Resp B/P (MAP) Pulse Ox O2 Delivery O2 Flow Rate FiO2 11/29/21 07:00 98.6 94 18 136/73 (94) 94 Room Air 98.6 ROS: No Nausea, No Chest Pain, No Abdominal Pain, No Increase Cough General: Alert, Oriented X4 Lungs: Clear Cardiovascular: S1, S2 Abdomen: Soft, Non-tender Neuro Exam: Alert Extremities: No Edema Skin: Warm, No Rashes Labs Laboratory Tests Test 11/27/21 09:30 11/27/21 15:57 11/27/21 22:15 11/28/21 05:15 Heparin Anti-Xa Act, Unfractionated 0.26 IU/mL (0.30-0.70) 0.63 IU/mL (0.30-0.70) 0.72 IU/mL (0.30-0.70) 0.74 IU/mL (0.30-0.70) White Blood Count 10.6 x10^3/uL (4.0-11.0) Red Blood Count 3.71 x10^6/uL (3.50-5.40) Hemoglobin 10.8 g/dL (12.0-15.5) Hematocrit 33.5 % (36.0-47.0) Mean Corpuscular Volume 90 fL (79-100) Mean Corpuscular Hemoglobin 29 pg (25-35) Mean Corpuscular Hemoglobin Concent 32 g/dL (31-37) Red Cell Distribution Width 14.7 % (11.5-14.5) Platelet Count 248 x10^3/uL (140-400) Neutrophils (%) (Auto) 74 % (31-73) Lymphocytes (%) (Auto) 13 % (24-48) Monocytes (%) (Auto) 9 % (0-9) Eosinophils (%) (Auto) 3 % (0-3) Basophils (%) (Auto) 1 % (0-3) Neutrophils # (Auto) 7.8 x10^3/uL (1.8-7.7) Lymphocytes # (Auto) 1.4 x10^3/uL (1.0-4.8) Monocytes # (Auto) 1.0 x10^3/uL (0.0-1.1) Eosinophils # (Auto) 0.3 x10^3/uL (0.0-0.7) Basophils # (Auto) 0.1 x10^3/uL (0.0-0.2) Prothrombin Time 14.2 SEC (11.7-14.0) Prothromb Time International Ratio 1.1 (0.8-1.1) Test 11/28/21 08:40 11/28/21 14:19 11/28/21 17:26 11/28/21 22:50 Coronavirus (COVID-19)(PCR) Not detected (NOT DETECTD) SARS-CoV-2 Antigen (Rapid) Negative (NEGATIVE) Heparin Anti-Xa Act, Unfractionated 0.64 IU/mL (0.30-0.70) 0.56 IU/mL (0.30-0.70) 0.51 IU/mL (0.30-0.70) Test 11/29/21 04:25 11/29/21 04:45 Sodium Level 139 mmol/L (136-145) Potassium Level 3.9 mmol/L (3.5-5.1) Chloride Level 103 mmol/L (98-107) Carbon Dioxide Level 26 mmol/L (21-32) Anion Gap 10 (6-14) Blood Urea Nitrogen 9 mg/dL (7-20) Creatinine 0.8 mg/dL (0.6-1.0) Estimated GFR (Cockcroft-Gault) 75.0 Glucose Level 107 mg/dL (70-99) Calcium Level 8.7 mg/dL (8.5-10.1) White Blood Count 10.3 x10^3/uL (4.0-11.0) Red Blood Count 3.81 x10^6/uL (3.50-5.40) Hemoglobin 11.2 g/dL (12.0-15.5) Hematocrit 34.3 % (36.0-47.0) Mean Corpuscular Volume 90 fL (79-100) Mean Corpuscular Hemoglobin 29 pg (25-35) Mean Corpuscular Hemoglobin Concent 33 g/dL (31-37) Red Cell Distribution Width 14.8 % (11.5-14.5) Platelet Count 311 x10^3/uL (140-400) Neutrophils (%) (Auto) 76 % (31-73) Lymphocytes (%) (Auto) 13 % (24-48) Monocytes (%) (Auto) 8 % (0-9) Eosinophils (%) (Auto) 2 % (0-3) Basophils (%) (Auto) 1 % (0-3) Neutrophils # (Auto) 7.8 x10^3/uL (1.8-7.7) Lymphocytes # (Auto) 1.3 x10^3/uL (1.0-4.8) Monocytes # (Auto) 0.8 x10^3/uL (0.0-1.1) Eosinophils # (Auto) 0.2 x10^3/uL (0.0-0.7) Basophils # (Auto) 0.1 x10^3/uL (0.0-0.2) Prothrombin Time 14.3 SEC (11.7-14.0) Prothromb Time International Ratio 1.1 (0.8-1.1) Heparin Anti-Xa Act, Unfractionated 0.56 IU/mL (0.30-0.70) Laboratory Tests Test 11/28/21 08:40 11/28/21 14:19 11/28/21 17:26 11/28/21 22:50 Coronavirus (COVID-19)(PCR) Not detected (NOT DETECTD) SARS-CoV-2 Antigen (Rapid) Negative (NEGATIVE) Heparin Anti-Xa Act, Unfractionated 0.64 IU/mL (0.30-0.70) 0.56 IU/mL (0.30-0.70) 0.51 IU/mL (0.30-0.70) Test 11/29/21 04:25 11/29/21 04:45 Sodium Level 139 mmol/L (136-145) Potassium Level 3.9 mmol/L (3.5-5.1) Chloride Level 103 mmol/L (98-107) Carbon Dioxide Level 26 mmol/L (21-32) Anion Gap 10 (6-14) Blood Urea Nitrogen 9 mg/dL (7-20) Creatinine 0.8 mg/dL (0.6-1.0) Estimated GFR (Cockcroft-Gault) 75.0 Glucose Level 107 mg/dL (70-99) Calcium Level 8.7 mg/dL (8.5-10.1) White Blood Count 10.3 x10^3/uL (4.0-11.0) Red Blood Count 3.81 x10^6/uL (3.50-5.40) Hemoglobin 11.2 g/dL (12.0-15.5) Hematocrit 34.3 % (36.0-47.0) Mean Corpuscular Volume 90 fL (79-100) Mean Corpuscular Hemoglobin 29 pg (25-35) Mean Corpuscular Hemoglobin Concent 33 g/dL (31-37) Red Cell Distribution Width 14.8 % (11.5-14.5) Platelet Count 311 x10^3/uL (140-400) Neutrophils (%) (Auto) 76 % (31-73) Lymphocytes (%) (Auto) 13 % (24-48) Monocytes (%) (Auto) 8 % (0-9) Eosinophils (%) (Auto) 2 % (0-3) Basophils (%) (Auto) 1 % (0-3) Neutrophils # (Auto) 7.8 x10^3/uL (1.8-7.7) Lymphocytes # (Auto) 1.3 x10^3/uL (1.0-4.8) Monocytes # (Auto) 0.8 x10^3/uL (0.0-1.1) Eosinophils # (Auto) 0.2 x10^3/uL (0.0-0.7) Basophils # (Auto) 0.1 x10^3/uL (0.0-0.2) Prothrombin Time 14.3 SEC (11.7-14.0) Prothromb Time International Ratio 1.1 (0.8-1.1) Heparin Anti-Xa Act, Unfractionated 0.56 IU/mL (0.30-0.70) Medications Active Scripts Medications Dose Route/Sig Max Daily Dose Days Date Category Amox Tr-K Clv 875-125 Mg Tab (Amoxicillin/Potassium Clav) 1 Each Tablet 1 Tab PO BID 11/26/21 Reported Tylenol Extra Strength (Acetaminophen) 500 Mg Tablet 500 Mg PO PRN Q4HRS PRN 11/26/21 Reported Famotidine 20 Mg Tablet 20 Mg PO HS 11/26/21 Reported Losartan Potassium 100 Mg Tablet 100 Mg PO DAILY 11/26/21 Reported Montelukast Sodium Tablet (Montelukast Sodium) 10 Mg Tablet 10 Mg PO HS 01/03/17 Reported Anastrozole 1 Mg Tablet 1 Tab PO DAILY 01/03/17 Reported Lansoprazole 15 Mg Capsule. 15 Mg PO DAILY08 01/03/17 Reported Impression . 1. Shortness of breath secondary to extensive pulmonary embolism. 2. Bilateral extensive pulmonary embolism. 3. Bilateral deep venous thrombosis. 4. Obstructive sleep apnea-hypopnea syndrome. 5. Factor V Leiden deficiency. 6. History of breast cancer, status post reconstructive surgery, on Arimidex. 7. Gastroesophageal reflux disease. 8. recent ear surgery Plan . Updated 11/29 Discussed with mail service coordinator, defer to mail service coordinator for anticoagulation Possible repeat CT chest in 2 months Currently on room air Encourage pulmonary hygiene; IS hourly while in bed Labs reviewed Pending ECHO Protonix for prophylaxis PLAN AND RECOMMENDATIONS: 1. Titrate FiO2 to keep O2 saturation 92%. 2. Agree with heparin. 3. Agree with Coumadin. Her BMI is 50, so she is not a candidate for DOAC. 4. I consulted Dr. Everett interventional radiologist to review the CT of the chest as the patient has large clot burden to see if the patient is a candidate for thrombectomy. he reviewed cta and stated she might be a candidate for thrombectomy he will discuss w dr brantley 5. Protonix for gastroesophageal reflux disease. 6. Lose weight. 7. Use CPAP during sleep. I have discussed obstructive sleep apnea-hypopnea syndrome. 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 8. I will order echocardiogram. NIALL PANCHAL MD Nov 29, 2021 08:22
[2021-11-29] MEDS: LOSARTAN POTASSIUM 50 MG TABLET. PO SCH (08:40)
[2021-11-29] MEDS: LACTOBACILLUS RHAMNOSUS GG 1 CAPSULE. PO SCH ×2 (08:40→19:17)
[2021-11-29] MEDS: PANTOPRAZOLE 40 MG TABLET.DR. PO SCH (08:40)
[2021-11-29] MEDS: AMOXICILLIN/K CLAV 875/125MG TABLET. PO SCH ×2 (08:40→19:18)
[2021-11-29] MEDS: ANASTROZOLE 1 MG TABLET PO SCH (08:41)
--- NOTE | 2021-11-29 09:28 | PDOC ---
PROGRESS NOTES Date of Service: DATE: 11/29/21 TIME: 09:26 Subjective Subjective no new problems Objective Objective Vital Signs Date Time Temp Pulse Resp B/P (MAP) Pulse Ox O2 Delivery O2 Flow Rate FiO2 11/29/21 08:40 94 136/73 11/29/21 07:00 98.6 18 94 Room Air 98.6 Intake and Output 11/29/21 07:00 Intake Total 2930 ml Output Total 500 ml Balance 2430 ml Intake Oral 2680 ml IV Total 250 ml Output Urine Total 500 ml # Voids 4 Physical Exam Abdomen: Soft Heart: Normal S1, Normal S2 Extremities: No clubbing General: Alert HEENT: Atraumatic Lungs: Clear to auscultation MUSCULOSKELETAL: No swelling Neck: No JVD Neuro: Normal speech Psych/Mental Status: Mental status NL Skin: No breakdown Diagnosis Problem List Problems Medical Problems: (1) Acute deep vein thrombosis of both lower extremities Status: Acute (2) Pulmonary emboli Status: Acute Assessment Assessment 1. Pulmonary embolism. 2. Bilateral deep venous thrombosis. 3. Strong family history of blood clots in the family. 4. Recent surgery on the left ear and cranium for CSF leak into the left ear. 5. History of breast cancer, had a reconstructive surgery and on Arimidex. 6. Gastroesophageal reflux disease. 7. Obesity. PLAN: spoke with Neuro surgery from [facility] over weekend and updated her conditio n. At this time, was admitted to the hospital, heparin drip and probably overlapped with Coumadin. Hematology consult. Pulmonary consult and see how she improves. The patient's oxygen is good, 98% on room air. The patient probably needs to be on anticoagulation lifelong with a strong family history of DVT and PE. Acute pulmonary embolism. Dr. Kirk Bee has consulted radiologist to see if there is any necessity for radiology intervention because of high clot burden. Continue IV heparin drip and oral Coumadin. Recent brain surgery to fix CSF leak. The neurosurgeon had concerns about use of anticoagulation as the surgery was about [address] scan of head without contrast on 27 November 1. Interval left mastoidectomy and left temporal craniotomy with focal encephalomalacia in the left temporal lobe. 2. There is a thin hypodense heterogeneous collection deep to the craniotomy site, possibly a small amount of postoperative fluid and/or hemorrhage. No large extra-axial collection, mass effect or midline shift. Plan Plan of Care Problems Medical Problems: (1) Acute deep vein thrombosis of both lower extremities Status: Acute (2) Pulmonary emboli Status: Acute Comment Review of Relevant I have reviewed the following items silverio (where applicable) has been applied. Labs Laboratory Tests Test 11/28/21 14:19 11/28/21 17:26 11/28/21 22:50 11/29/21 04:25 Heparin Anti-Xa Act, Unfractionated 0.64 IU/mL (0.30-0.70) 0.56 IU/mL (0.30-0.70) 0.51 IU/mL (0.30-0.70) Sodium Level 139 mmol/L (136-145) Potassium Level 3.9 mmol/L (3.5-5.1) Chloride Level 103 mmol/L (98-107) Carbon Dioxide Level 26 mmol/L (21-32) Anion Gap 10 (6-14) Blood Urea Nitrogen 9 mg/dL (7-20) Creatinine 0.8 mg/dL (0.6-1.0) Estimated GFR (Cockcroft-Gault) 75.0 Glucose Level 107 mg/dL (70-99) Calcium Level 8.7 mg/dL (8.5-10.1) Test 11/29/21 04:45 White Blood Count 10.3 x10^3/uL (4.0-11.0) Red Blood Count 3.81 x10^6/uL (3.50-5.40) Hemoglobin 11.2 g/dL (12.0-15.5) Hematocrit 34.3 % (36.0-47.0) Mean Corpuscular Volume 90 fL (79-100) Mean Corpuscular Hemoglobin 29 pg (25-35) Mean Corpuscular Hemoglobin Concent 33 g/dL (31-37) Red Cell Distribution Width 14.8 % (11.5-14.5) Platelet Count 311 x10^3/uL (140-400) Neutrophils (%) (Auto) 76 % (31-73) Lymphocytes (%) (Auto) 13 % (24-48) Monocytes (%) (Auto) 8 % (0-9) Eosinophils (%) (Auto) 2 % (0-3) Basophils (%) (Auto) 1 % (0-3) Neutrophils # (Auto) 7.8 x10^3/uL (1.8-7.7) Lymphocytes # (Auto) 1.3 x10^3/uL (1.0-4.8) Monocytes # (Auto) 0.8 x10^3/uL (0.0-1.1) Eosinophils # (Auto) 0.2 x10^3/uL (0.0-0.7) Basophils # (Auto) 0.1 x10^3/uL (0.0-0.2) Prothrombin Time 14.3 SEC (11.7-14.0) Prothromb Time International Ratio 1.1 (0.8-1.1) Heparin Anti-Xa Act, Unfractionated 0.56 IU/mL (0.30-0.70) Medications Current Medications Lactobacillus Rhamnosus (Culturelle) 1 cap BID PO Last administered on 11/03 05/23at 08:40; Start 11/28/21 at 21:00 Warfarin Sodium (Coumadin) 7.5 mg 1X WARF ONCE PO Last administered on 11/28/21at 16:41; Start 11/28/21 at 16:00; Stop 11/28/21 at 16:01; Status DC Vitals/I & O Vital Sign - Last 24 Hours 11/28/21 11/28/21 11/28/21 11/28/21 11:00 15:00 18:38 20:00 Temp 98.0 97.8 99.4 98.0 97.8 99.4 Pulse 91 92 97 Resp 20 18 20 B/P (MAP) 133/67 (89) 113/76 (88) 135/76 (95) Pulse Ox 95 95 95 O2 Delivery Room Air Nasal Cannula Room Air Room Air 11/28/21 11/29/21 11/29/21 11/29/21 22:50 03:15 07:00 08:40 Temp 98.3 98.6 98.6 98.3 98.6 98.6 Pulse 101 96 94 94 Resp 20 20 18 B/P (MAP) 117/62 (80) 112/64 (80) 136/73 (94) 136/73 Pulse Ox 97 92 94 O2 Delivery Room Air Room Air Room Air Intake and Output 11/28/21 11/28/21 11/29/21 15:00 23:00 07:00 Intake Total 800 ml 1030 ml 1100 ml Output Total 500 ml Balance 300 ml 1030 ml 1100 ml Justifications for Admission Other Justification SHIRLEY MCBRIDE MD Nov 29, 2021 09:27
--- NOTE | 2021-11-29 09:41 | CARD ---
MR#: [id number] Date of Study: 11/28/2021 Ordering Physician: SAVANNAH RODRIGUEZ, Referring Physician: Torey BENITES: Candelario West [facility] APPROVED REPORT EXAM: Two-dimensional and M-mode echocardiogram with Doppler and color Doppler. Other Information Quality : FairHR: 93bpm Rhythm : NSRTechnically limited study due to body habitus. INDICATION Pulmonary Embolism RISK FACTORS Hypertension Obesity Obstructive sleep apnea 2D DIMENSIONS Left Atrium(2D)3.1 (1.6-4.0cm)IVSd1.3 (0.7-1.1cm) Aortic Root(2D)3.7 (2.0-3.7cm)LVDd4.7 (3.9-5.9cm) LVOT Diameter2.6 (1.8-2.4cm)PWd1.3 (0.7-1.1cm) LVDs3.4 (2.5-4.0cm)FS (%) 27.5 % SV54.6 ml Mitral Valve MV E Umgqqbeo79.1cm/sMV E Peak Gr.5mmHg MV DECEL [id number] A Hzlduzqv822.2cm/s MV E Mean Gr.2mmHgE/A Ratio0.8 Pulmonary Valve PV Peak Ofadnvtb37.2cm/s Tricuspid Valve TR P. Wpadleca389zx/sTR Peak Gr.31mmHg Pulmonary Vein S1 Awvlijeo41.5cm/sD2 Vofeawpi13.9cm/s LEFT VENTRICLE The left ventricle is normal size. There is mild concentric left ventricular hypertrophy. The left ve ntricular systolic function is normal and the ejection fraction is within normal range. LV ejection f raction of 50 to 55%. There is normal LV segmental wall motion. Transmitral Doppler flow pattern is G rade I-abnormal relaxation pattern. No left ventricle thrombus noted on this study. There is no ventr icular septal defect visualized. There is no left ventricular aneurysm. There is no mass noted in the left ventricle. RIGHT VENTRICLE The right ventricle is normal size. There is normal right ventricular wall thickness. The right ventr icular systolic function is normal. ATRIA The left atrium size is normal. The right atrium size is normal. The interatrial septum is intact wit h no evidence for an atrial septal defect or patent foramen ovale as noted on 2-D or Doppler imaging. AORTIC VALVE The aortic valve is mildly sclerotic. Doppler and Color Flow revealed no significant aortic regurgita tion. There is no significant aortic valvular stenosis. There is no aortic valvular vegetation. MITRAL VALVE The mitral valve is normal in structure and function. There is no evidence of mitral valve prolapse. There is no mitral valve stenosis. Doppler and Color Flow revealed no mitral valve regurgitation note d. TRICUSPID VALVE The tricuspid valve is normal in structure and function. Doppler and Color Flow revealed trace to mil d tricuspid regurgitation. The PA pressure was estimated at 38 mmHg. There is no tricuspid valve prol apse or vegetation. There is no tricuspid valve stenosis. PULMONIC VALVE The pulmonary valve is normal in structure and function. Doppler and Color Flow revealed no pulmonic valvular regurgitation. There is no pulmonic valvular stenosis. GREAT VESSELS The aortic root is normal in size. The ascending aorta is normal in size. The pulmonary artery is nor mal. The IVC is normal in size and collapses >50% with inspiration. PERICARDIAL EFFUSION There is no pleural effusion. There is no evidence of significant pericardial effusion. Critical Notification Critical Value: No <Conclusion> The left ventricle is normal size. The left ventricular systolic function is normal and the ejection fraction is within normal range. LV ejection fraction of 50 to 55%. There is mild concentric left ventricular hypertrophy. Doppler and Color Flow revealed no significant aortic regurgitation. There is no significant aortic valvular stenosis. Doppler and Color Flow revealed no mitral valve regurgitation noted. Doppler and Color Flow revealed trace to mild tricuspid regurgitation. The PA pressure was estimated at 38 mmHg. Signed by : Manjeet Rand MD Electronically Approved : 11/29/2021 09:40:58
[2021-11-29 10:30] VITALS: BP 127/63
--- NOTE | 2021-11-29 13:11 | NUR ---
SS following for discharge planning. SS reviewed pt chart and discussed with pt RN. Pt is from home and is currently on room air. COVID19 negative. Pulmonology following. Bilateral PE's. Heparin drip. PO Amoxicillin. Pt requesting at home warfarin testing at discharge. SS will continue to follow for discharge planning.
[2021-11-29] MEDS: HEPARIN 25,000UTS/250ML PREMIX 250 ML IV PRN ×2 (13:17→20:48)
--- NOTE | 2021-11-29 14:51 | PDOC2 ---
CONSULT Date of Consult Date of Consult DATE: 11/29/21 TIME: 14:48 Reason for Consult Reason for Consult: Pulmonary embolism, family history of VTE Referring Physician Referring Physician: Dr. Lehman Identification/Chief Complaint Chief Complaint Shortness of breath Source Source: Chart review, Patient History of Present Illness Reason for Visit: Noreen Caro is a 51-year-old female who has been admitted to [facility] for further management after presenting with shortness of breath and left leg pain. She received further evaluation with CTA chest which showed extensive bilateral pulmonary emboli extending from the right and left main pulmonary artery into lobar and segmental branches. Ultrasound of both lower extremities was obtained and showed bilateral DVT. Patient reports history of factor V Leiden heterozygous. She also has a history of breast cancer in 2009 for which she received breast conservation followed by adjuvant endocrine therapy. She has continued to take adjuvant endocrine therapy since then. Patient reports family history of factor V Leiden. She recently underwent surgery 2 weeks ago for CSF air leak. Patient reports that she was discharged 2 days postoperatively. She maintained appropriate mobility but had significant fatigue postoperatively. She presented to the hospital yesterday after noticing discomfort in the left leg and fatigue. She has been started on therapeutic anticoagulation with warfarin. Hematology consultation has been requested to the patient's history of factor V Leiden and acute presentation with VT with significant clot burden. 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 Current Problem List Problem List Problems Medical Problems: (1) Acute deep vein thrombosis of both lower extremities Status: Acute (2) Pulmonary emboli Status: Acute Current Medications Current Medications Current Medications Heparin Sodium/ Dextrose 250 ml @ 20 mls/hr CONT PRN IV PER PROTOCOL Last administered on 11/29/21at 13:17; Start 11/26/21 at 20:00 Heparin Sodium (Porcine) (Heparin Sodium) 5,250 unit PRN Q6HRS PRN IV FOR UFH LEVEL LESS THAN 0.2; Start 11/26/21 at 20:00 Heparin Sodium (Porcine) (Heparin Sodium) 2,650 unit PRN Q6HRS PRN IV FOR UFH LEVEL 0.2 - 0.29 Last administered on 11/27/21at 10:35; Start 11/26/21 at 20:00 Iohexol (Omnipaque 350 Mg/ml) 100 ml 1X ONCE IV Last administered on 11/26/21at 21:17; Start 11/26/21 at 21:00; Stop 11/26/21 at 21:01; Status DC Ondansetron HCl (Zofran) 4 mg PRN Q8HRS PRN IVP NAUSEA/VOMITING 1ST CHOICE; Start 11/26/21 at 21:45; Stop 11/27/21 at 21:44; Status DC Acetaminophen (Tylenol) 650 mg PRN Q6HRS PRN PO MILD PAIN / TEMP > 100.3'F Last administered on 11/28/21at 08:24; Start 11/26/21 at 21:45 Fentanyl Citrate (Fentanyl 2ml Vial) 50 mcg PRN Q2HR PRN IVP SEVERE PAIN 7-10; Start 11/26/21 at 21:45 Sodium Chloride 1,000 ml @ 75 mls/hr [id number] IV ; Start 11/26/21 at 22:00; Stop 11/27/21 at 00:02; Status DC Warfarin Sodium (Coumadin Per Pharmacy) 1 each PRN DAILY PRN MC SEE COMMENTS Last administered on 11/29/21at 14:36; Start 11/27/21 at 12:15 Warfarin Sodium (Coumadin) 7.5 mg 1X WARF ONCE PO Last administered on 11/27at 15:54; Start 11/27/21 at 16:00; Stop 11/27/21 at 16:01; Status DC Acetaminophen (Tylenol) 500 mg PRN Q4HRS PRN PO PAIN; Start 11/27/21 at 12:15; Status UNV Amoxicillin/ Clavulanate Potassium (Augmentin 875/ 125mg) 1 tab BID PO Last administered on 11/29/21at 08:40; Start 11/27/21 at 13:00; Stop 11/29/21 at 22:00 Anastrozole (Arimidex) 1 mg DAILY PO Last administered on 11/29/21at 08:41; Start 11/27/21 at 13:00 Famotidine (Pepcid) 20 mg HS PO Last administered on 11/28/21at 21:45; Start 11/27/21 at 21:00 Montelukast Sodium (Singulair) 10 mg HS PO Last administered on 11/28/21at 21:45; Start 11/27/21 at 21:00 Lansoprazole (Prevacid) 30 mg DAILY08 PO Last administered on 11/27/21at 12:31; Start 11/27/21 at 13:00; Stop 11/27/21 at 12:43; Status DC Losartan Potassium (Cozaar) 100 mg DAILY PO Last administered on 11/29/21at 08:40; Start 11/27/21 at 13:00 Zolpidem Tartrate (Ambien) 5 mg PRN QHS PRN PO INSOMNIA; Start 11/27/21 at 12:15 Warfarin Sodium (Coumadin Per Physician) 1 each PRN DAILY PRN MC SEE COMMENTS; Start 11/27/21 at 12:15; Status UNV Losartan Potassium (Cozaar) 100 mg DAILY PO ; Start 11/27/21 at 12:30; Status UNV Pantoprazole Sodium (Protonix) 40 mg DAILY PO Last administered on 11/29/21at 08:40; Start 11/27/21 at 12:45 Warfarin Sodium (Coumadin) 7.5 mg 1X WARF ONCE PO Last administered on 11/28/21at 16:41; Start 11/28/21 at 16:00; Stop 11/28/21 at 16:01; Status DC Lactobacillus Rhamnosus (Culturelle) 1 cap BID PO Last administered on 11/29/21at 08:40; Start 11/28/21 at 21:00 Warfarin Sodium (Coumadin) 10 mg 1X WARF ONCE PO ; Start 11/29/21 at 16:00; Stop 11/29/21 at 16:01 Active Scripts Active Reported Amox Tr-K Clv 875-125 Mg Tab (Amoxicillin/Potassium Clav) 1 Each Tablet 1 Tab PO BID Tylenol Extra Strength (Acetaminophen) 500 Mg Tablet 500 Mg PO PRN Q4HRS PRN Famotidine 20 Mg Tablet 20 Mg PO HS Losartan Potassium 100 Mg Tablet 100 Mg PO DAILY Montelukast Sodium Tablet (Montelukast Sodium) 10 Mg Tablet 10 Mg PO HS Anastrozole 1 Mg Tablet 1 Tab PO DAILY Lansoprazole 15 Mg Capsule.dr 15 Mg PO DAILY08 Allergies Allergies: Coded Allergies: No Known Drug Allergies (Unverified , 10/12/18) ROS Review of System Negative unless stated otherwise in interval history Physical Exam General: Alert, Oriented X3 HEENT: Atraumatic Lungs: Normal air movement Heart: Regular rate Abdomen: Other (No distention noted) Extremities: No cyanosis, No edema Skin: No rashes Neuro: Other (No focal deficits) Psych/Mental Status: Mental status NL Vitals VITALS Vital Signs Date Time Temp Pulse Resp B/P (MAP) Pulse Ox O2 Delivery O2 Flow Rate FiO2 11/29/21 10:30 97.8 92 18 127/63 (84) 95 Room Air 97.8 Labs Labs Laboratory Tests Test 11/27/21 15:57 11/27/21 22:15 11/28/21 05:15 11/28/21 08:40 Heparin Anti-Xa Act, Unfractionated 0.63 IU/mL (0.30-0.70) 0.72 IU/mL (0.30-0.70) 0.74 IU/mL (0.30-0.70) White Blood Count 10.6 x10^3/uL (4.0-11.0) Red Blood Count 3.71 x10^6/uL (3.50-5.40) Hemoglobin 10.8 g/dL (12.0-15.5) Hematocrit 33.5 % (36.0-47.0) Mean Corpuscular Volume 90 fL (79-100) Mean Corpuscular Hemoglobin 29 pg (25-35) Mean Corpuscular Hemoglobin Concent 32 g/dL (31-37) Red Cell Distribution Width 14.7 % (11.5-14.5) Platelet Count 248 x10^3/uL (140-400) Neutrophils (%) (Auto) 74 % (31-73) Lymphocytes (%) (Auto) 13 % (24-48) Monocytes (%) (Auto) 9 % (0-9) Eosinophils (%) (Auto) 3 % (0-3) Basophils (%) (Auto) 1 % (0-3) Neutrophils # (Auto) 7.8 x10^3/uL (1.8-7.7) Lymphocytes # (Auto) 1.4 x10^3/uL (1.0-4.8) Monocytes # (Auto) 1.0 x10^3/uL (0.0-1.1) Eosinophils # (Auto) 0.3 x10^3/uL (0.0-0.7) Basophils # (Auto) 0.1 x10^3/uL (0.0-0.2) Prothrombin Time 14.2 SEC (11.7-14.0) Prothromb Time International Ratio 1.1 (0.8-1.1) Coronavirus (COVID-19)(PCR) Not detected (NOT DETECTD) SARS-CoV-2 Antigen (Rapid) Negative (NEGATIVE) Test 11/28/21 14:19 11/28/21 17:26 11/28/21 22:50 11/29/21 04:25 Heparin Anti-Xa Act, Unfractionated 0.64 IU/mL (0.30-0.70) 0.56 IU/mL (0.30-0.70) 0.51 IU/mL (0.30-0.70) Sodium Level 139 mmol/L (136-145) Potassium Level 3.9 mmol/L (3.5-5.1) Chloride Level 103 mmol/L (98-107) Carbon Dioxide Level 26 mmol/L (21-32) Anion Gap 10 (6-14) Blood Urea Nitrogen 9 mg/dL (7-20) Creatinine 0.8 mg/dL (0.6-1.0) Estimated GFR (Cockcroft-Gault) 75.0 Glucose Level 107 mg/dL (70-99) Calcium Level 8.7 mg/dL (8.5-10.1) Test 11/29/21 04:45 White Blood Count 10.3 x10^3/uL (4.0-11.0) Red Blood Count 3.81 x10^6/uL (3.50-5.40) Hemoglobin 11.2 g/dL (12.0-15.5) Hematocrit 34.3 % (36.0-47.0) Mean Corpuscular Volume 90 fL (79-100) Mean Corpuscular Hemoglobin 29 pg (25-35) Mean Corpuscular Hemoglobin Concent 33 g/dL (31-37) Red Cell Distribution Width 14.8 % (11.5-14.5) Platelet Count 311 x10^3/uL (140-400) Neutrophils (%) (Auto) 76 % (31-73) Lymphocytes (%) (Auto) 13 % (24-48) Monocytes (%) (Auto) 8 % (0-9) Eosinophils (%) (Auto) 2 % (0-3) Basophils (%) (Auto) 1 % (0-3) Neutrophils # (Auto) 7.8 x10^3/uL (1.8-7.7) Lymphocytes # (Auto) 1.3 x10^3/uL (1.0-4.8) Monocytes # (Auto) 0.8 x10^3/uL (0.0-1.1) Eosinophils # (Auto) 0.2 x10^3/uL (0.0-0.7) Basophils # (Auto) 0.1 x10^3/uL (0.0-0.2) Prothrombin Time 14.3 SEC (11.7-14.0) Prothromb Time International Ratio 1.1 (0.8-1.1) Heparin Anti-Xa Act, Unfractionated 0.56 IU/mL (0.30-0.70) Laboratory Tests Test 11/28/21 17:26 11/28/21 22:50 11/29/21 04:25 11/29/21 04:45 Heparin Anti-Xa Act, Unfractionated 0.56 IU/mL (0.30-0.70) 0.51 IU/mL (0.30-0.70) 0.56 IU/mL (0.30-0.70) Sodium Level 139 mmol/L (136-145) Potassium Level 3.9 mmol/L (3.5-5.1) Chloride Level 103 mmol/L (98-107) Carbon Dioxide Level 26 mmol/L (21-32) Anion Gap 10 (6-14) Blood Urea Nitrogen 9 mg/dL (7-20) Creatinine 0.8 mg/dL (0.6-1.0) Estimated GFR (Cockcroft-Gault) 75.0 Glucose Level 107 mg/dL (70-99) Calcium Level 8.7 mg/dL (8.5-10.1) White Blood Count 10.3 x10^3/uL (4.0-11.0) Red Blood Count 3.81 x10^6/uL (3.50-5.40) Hemoglobin 11.2 g/dL (12.0-15.5) Hematocrit 34.3 % (36.0-47.0) Mean Corpuscular Volume 90 fL (79-100) Mean Corpuscular Hemoglobin 29 pg (25-35) Mean Corpuscular Hemoglobin Concent 33 g/dL (31-37) Red Cell Distribution Width 14.8 % (11.5-14.5) Platelet Count 311 x10^3/uL (140-400) Neutrophils (%) (Auto) 76 % (31-73) Lymphocytes (%) (Auto) 13 % (24-48) Monocytes (%) (Auto) 8 % (0-9) Eosinophils (%) (Auto) 2 % (0-3) Basophils (%) (Auto) 1 % (0-3) Neutrophils # (Auto) 7.8 x10^3/uL (1.8-7.7) Lymphocytes # (Auto) 1.3 x10^3/uL (1.0-4.8) Monocytes # (Auto) 0.8 x10^3/uL (0.0-1.1) Eosinophils # (Auto) 0.2 x10^3/uL (0.0-0.7) Basophils # (Auto) 0.1 x10^3/uL (0.0-0.2) Prothrombin Time 14.3 SEC (11.7-14.0) Prothromb Time International Ratio 1.1 (0.8-1.1) Assessment/Plan Assessment/Plan Assessment: Pulmonary embolism, provoked Bilateral lower extremity DVT, provoked Factor V Leiden, heterozygous CSF leak status post repair Acute hypoxic respiratory failure History of breast cancer, currently on endocrine therapy Recommendations: -Continue therapeutic anticoagulation. Warfarin is reasonable choice with a target INR of 2-3. Can also consider Eliquis/DOAC's although the evidence supporting its efficacy in patients with BMI over 50 is limited. -Given significant clot burden, would recommend therapeutic anticoagulation for at least 6 months. Would favor 12 months of anticoagulation therapy -Can consider extended duration therapeutic anticoagulation given large clot burden, factor V Leiden history. We briefly discussed the options for this including lowered dose Eliquis. She plans to discuss this further with Dr. Soliman -Noted plans for thrombectomy -Patient was provided contact information for my office to arrange a second opinion if interested -Rest per Dr. Dominik Ruiz MD Medical Oncology/Hematology Ph: [phone] DULCE MARIA RUIZ MD Nov 29, 2021 14:51
[2021-11-29 15:00] VITALS: BP 119/69
[2021-11-29] MEDS ORDERED: WARFARIN 5 MG TABLET. PO ONE (16:00)
--- NOTE | 2021-11-29 16:58 | NUR ---
Pharmacy Warfarin Dosing Note S:Pharmacy consulted to assist with anticoagulation therapy started with target INR: 2 -3 O:ANNA FERGUSON is a 51 year old F with DVT/PE LABS: Last INR: 1.1 Last HGB: 11.2 Last HCT: 33.5 Last PLT: 311 Last dose of 7.5 mg given on 11/28/21 at 1554 Previous Regimen: Vitamin K given: N Drug Interaction Changes: Ongoing Drug Interactions: A:INR of 1.1 is below desired range. Target range for this patient is: 2 -3 P: Warfarin dose: 10 mg Today at 1600 Bridge Therapy: Heparin Therapeutic CONT Next INR due IN AM Pharmacy anticoagulation service will continue to follow. PRIMO BAKER [facility], 11/29/21 [id number]
[2021-11-29] MEDS: FAMOTIDINE 20 MG TABLET. PO SCH (19:18)
[2021-11-29] MEDS: MONTELUKAST SODIUM 10 MG TABLET. PO SCH (19:18)
[2021-11-29] MEDS: ACETAMINOPHEN 325 MG TABLET. PO PRN (19:18)
[2021-11-29 19:50] VITALS: BP 119/56
[2021-11-29 23:25] VITALS: BP 141/71
[2021-11-30 03:20] VITALS: BP 140/64
[2021-11-30 06:27] LABS: HEMATOCRIT 31.7 % (36.0-47.0); HEMOGLOBIN 10.4 g/dL (12.0-15.5); RED BLOOD COUNT 3.64 x10^6/uL (3.50-5.40); RED CELL DISTRIBUTION WIDTH 14.9 % (11.5-14.5); WHITE BLOOD COUNT 8.3 x10^3/uL (4.0-11.0)
[2021-11-30 06:54] LABS: PROTHROMBIN TIME PATIENT 15.6 SEC (11.7-14.0)
[2021-11-30 06:55] LABS: UNFRACTIONATED HEPARIN TESTING 0.36 IU/mL (0.30-0.70)
[2021-11-30 07:00] VITALS: BP 123/87
[2021-11-30] MEDS: LACTOBACILLUS RHAMNOSUS GG 1 CAPSULE. PO SCH (07:41)
[2021-11-30] MEDS: LOSARTAN POTASSIUM 50 MG TABLET. PO SCH (07:41)
[2021-11-30] MEDS: PANTOPRAZOLE 40 MG TABLET.DR. PO SCH (07:41)
[2021-11-30] MEDS: ANASTROZOLE 1 MG TABLET PO SCH (07:42)
--- NOTE | 2021-11-30 09:25 | PDOC ---
PROGRESS NOTES Date of Service: DATE: 11/30/21 TIME: 09:21 Subjective Subjective pt want to go home badly Objective Objective Vital Signs Date Time Temp Pulse Resp B/P (MAP) Pulse Ox O2 Delivery O2 Flow Rate FiO2 11/30/21 08:00 Room Air 11/30/21 07:41 85 140/64 11/30/21 07:00 98.5 20 95 98.5 Intake and Output 11/30/21 07:00 Intake Total 2300 ml Balance 2300 ml Intake Oral 2050 ml IV Total 250 ml # Voids 5 Physical Exam Abdomen: Other (No distention noted) Heart: Regular rate Extremities: No cyanosis, No edema General: Alert, Oriented X3 HEENT: Atraumatic Lungs: Normal air movement MUSCULOSKELETAL: No swelling Neck: No JVD Neuro: Other (No focal deficits) Psych/Mental Status: Mental status NL Skin: No rashes Diagnosis Problem List Problems Medical Problems: (1) Acute deep vein thrombosis of both lower extremities Status: Acute (2) Pulmonary emboli Status: Acute Assessment Assessment 1. Pulmonary embolism. 2. Bilateral deep venous thrombosis. 3. Strong family history of blood clots in the family. 4. Recent surgery on the left ear and cranium for CSF leak into the left ear. 5. History of breast cancer, had a reconstructive surgery and on Arimidex. 6. Gastroesophageal reflux disease. 7. Obesity. PLAN: pt want to go home inr1.2 on heparin drip and coumadin spoke with pulmonary and pharmacy d/c pt on Lovenox bridge+coumadin. inr check m,w,f.home inr machine will do ct head monday without contrast. pt understands the risk of bleeding. spoke with Neuro surgery from [facility] over weekend and updated her condition. At this time, was admitted to the hospital, heparin drip and probably overlapped with Coumadin. Hematology consult. Pulmonary consult and see how she improves. The patient's oxygen is good, 98% on room air. The patient probably needs to be on anticoagulation lifelong with a strong family history of DVT and PE. Acute pulmonary embolism. Dr. Kirk Bee has consulted radiologist to see if there is any necessity for radiology intervention because of high clot burden. Continue IV heparin drip and oral Coumadin. Recent brain surgery to fix CSF leak. The neurosurgeon had concerns about use of anticoagulation as the surgery was about [address] scan of head without contrast on November 02. Interval left mastoidectomy and left temporal craniotomy with focal encephalomalacia in the left temporal lobe. 2. There is a thin hypodense heterogeneous collection deep to the craniotomy site, possibly a small amount of postoperative fluid and/or hemorrhage. No large extra-axial collection, mass effect or midline shift. Plan Plan of Care Problems Medical Problems: (1) Acute deep vein thrombosis of both lower extremities Status: Acute (2) Pulmonary emboli Status: Acute Comment Review of Relevant I have reviewed the following items silverio (where applicable) has been applied. Labs Laboratory Tests Test 11/30/21 04:55 White Blood Count 8.3 x10^3/uL (4.0-11.0) Red Blood Count 3.64 x10^6/uL (3.50-5.40) Hemoglobin 10.4 g/dL (12.0-15.5) Hematocrit 31.7 % (36.0-47.0) Mean Corpuscular Volume 87 fL (79-100) Mean Corpuscular Hemoglobin 29 pg (25-35) Mean Corpuscular Hemoglobin Concent 33 g/dL (31-37) Red Cell Distribution Width 14.9 % (11.5-14.5) Platelet Count 351 x10^3/uL (140-400) Prothrombin Time 15.6 SEC (11.7-14.0) Prothromb Time International Ratio 1.2 (0.8-1.1) Heparin Anti-Xa Act, Unfractionated 0.36 IU/mL (0.30-0.70) Medications Current Medications Warfarin Sodium (Coumadin) 10 mg 1X WARF ONCE PO Last administered on 11/29/21at 16:35; Start 11/29/21 at 16:00; Stop 11/29/21 at 16:01; Status DC Vitals/I & O Vital Sign - Last 24 Hours 11/29/21 11/29/21 11/29/21 11/29/21 10:30 15:00 19:50 20:00 Temp 97.8 98.4 98.1 97.8 98.4 98.1 Pulse 92 93 103 Resp 18 18 20 B/P (MAP) 127/63 (84) 119/69 (86) 119/56 (77) Pulse Ox 95 95 97 O2 Delivery Room Air Room Air Room Air Room Air 2/28/22 3/1/22 3/1/22 3/1/22 23:25 03:20 07:00 07:41 Temp 98.4 98.6 98.5 98.4 98.6 98.5 Pulse 93 85 90 85 Resp 20 20 20 B/P (MAP) 141/71 (94) 140/64 (89) 123/87 (99) 140/64 Pulse Ox 95 94 95 O2 Delivery Room Air Room Air 11/30/21 08:00 O2 Delivery Room Air Intake and Output 11/29/21 11/29/21 11/30/21 15:00 23:00 07:00 Intake Total 750 ml 750 ml 800 ml Balance 750 ml 750 ml 800 ml Justifications for Admission Other Justification SHIRLEY MCBRIDE MD Nov 30, 2021 09:25
[2021-11-30] MEDS ORDERED: PANT40TA77 PO (09:33)
[2021-11-30] MEDS ORDERED: ZOLP5TAB PO (09:33)
[2021-11-30] MEDS ORDERED: WARF10TA40 PO (09:33)
[2021-11-30] MEDS ORDERED: ENOX150D SQ (09:33)
--- NOTE | 2021-11-30 10:44 | PDOC ---
PULMONARY PROGRESS NOTES DATE: 11/30/21 TIME: 10:39 Subjective Patient sitting up in chair this morning, in a pleasant mood, denies SOA, new cough, would like to go home Discussed anticoagulation and pmh Patient to discharge home on Lovenox and followed by Primary. Vitals Vital Signs Date Time Temp Pulse Resp B/P (MAP) Pulse Ox O2 Delivery O2 Flow Rate FiO2 11/30/21 08:00 Room Air 11/30/21 07:41 85 140/64 11/30/21 07:00 98.5 20 95 98.5 ROS: No Nausea, No Chest Pain, No Abdominal Pain, No Increase Cough General: Alert, Oriented X4 Lungs: Clear Cardiovascular: S1, S2 Abdomen: Soft, Non-tender Neuro Exam: Alert Extremities: No Edema Skin: Warm, No Rashes Labs Laboratory Tests Test 11/28/21 14:19 11/28/21 17:26 11/28/21 22:50 11/29/21 04:25 Heparin Anti-Xa Act, Unfractionated 0.64 IU/mL (0.30-0.70) 0.56 IU/mL (0.30-0.70) 0.51 IU/mL (0.30-0.70) Sodium Level 139 mmol/L (136-145) Potassium Level 3.9 mmol/L (3.5-5.1) Chloride Level 103 mmol/L (98-107) Carbon Dioxide Level 26 mmol/L (21-32) Anion Gap 10 (6-14) Blood Urea Nitrogen 9 mg/dL (7-20) Creatinine 0.8 mg/dL (0.6-1.0) Estimated GFR (Cockcroft-Gault) 75.0 Glucose Level 107 mg/dL (70-99) Calcium Level 8.7 mg/dL (8.5-10.1) Test 11/29/21 04:45 11/30/21 04:55 White Blood Count 10.3 x10^3/uL (4.0-11.0) 8.3 x10^3/uL (4.0-11.0) Red Blood Count 3.81 x10^6/uL (3.50-5.40) 3.64 x10^6/uL (3.50-5.40) Hemoglobin 11.2 g/dL (12.0-15.5) 10.4 g/dL (12.0-15.5) Hematocrit 34.3 % (36.0-47.0) 31.7 % (36.0-47.0) Mean Corpuscular Volume 90 fL (79-100) 87 fL (79-100) Mean Corpuscular Hemoglobin 29 pg (25-35) 29 pg (25-35) Mean Corpuscular Hemoglobin Concent 33 g/dL (31-37) 33 g/dL (31-37) Red Cell Distribution Width 14.8 % (11.5-14.5) 14.9 % (11.5-14.5) Platelet Count 311 x10^3/uL (140-400) 351 x10^3/uL (140-400) Neutrophils (%) (Auto) 76 % (31-73) Lymphocytes (%) (Auto) 13 % (24-48) Monocytes (%) (Auto) 8 % (0-9) Eosinophils (%) (Auto) 2 % (0-3) Basophils (%) (Auto) 1 % (0-3) Neutrophils # (Auto) 7.8 x10^3/uL (1.8-7.7) Lymphocytes # (Auto) 1.3 x10^3/uL (1.0-4.8) Monocytes # (Auto) 0.8 x10^3/uL (0.0-1.1) Eosinophils # (Auto) 0.2 x10^3/uL (0.0-0.7) Basophils # (Auto) 0.1 x10^3/uL (0.0-0.2) Prothrombin Time 14.3 SEC (11.7-14.0) 15.6 SEC (11.7-14.0) Prothromb Time International Ratio 1.1 (0.8-1.1) 1.2 (0.8-1.1) Heparin Anti-Xa Act, Unfractionated 0.56 IU/mL (0.30-0.70) 0.36 IU/mL (0.30-0.70) Laboratory Tests Test 11/30/21 04:55 White Blood Count 8.3 x10^3/uL (4.0-11.0) Red Blood Count 3.64 x10^6/uL (3.50-5.40) Hemoglobin 10.4 g/dL (12.0-15.5) Hematocrit 31.7 % (36.0-47.0) Mean Corpuscular Volume 87 fL (79-100) Mean Corpuscular Hemoglobin 29 pg (25-35) Mean Corpuscular Hemoglobin Concent 33 g/dL (31-37) Red Cell Distribution Width 14.9 % (11.5-14.5) Platelet Count 351 x10^3/uL (140-400) Prothrombin Time 15.6 SEC (11.7-14.0) Prothromb Time International Ratio 1.2 (0.8-1.1) Heparin Anti-Xa Act, Unfractionated 0.36 IU/mL (0.30-0.70) Medications Active Scripts Medications Dose Route/Sig Max Daily Dose Days Date Category Amox Tr-K Clv 875-125 Mg Tab (Amoxicillin/Potassium Clav) 1 Each Tablet 1 Tab PO BID 11/26/21 Reported Tylenol Extra Strength (Acetaminophen) 500 Mg Tablet 500 Mg PO PRN Q4HRS PRN 11/26/21 Reported Famotidine 20 Mg Tablet 20 Mg PO HS 11/26/21 Reported Losartan Potassium 100 Mg Tablet 100 Mg PO DAILY 11/26/21 Reported Montelukast Sodium Tablet (Montelukast Sodium) 10 Mg Tablet 10 Mg PO HS 01/03/17 Reported Anastrozole 1 Mg Tablet 1 Tab PO DAILY 01/03/17 Reported Lansoprazole 15 Mg Capsule.dr 15 Mg PO DAILY08 01/03/17 Reported Impression . 1. Shortness of breath secondary to extensive pulmonary embolism. 2. Bilateral extensive pulmonary embolism. 3. Bilateral deep venous thrombosis. 4. Obstructive sleep apnea-hypopnea syndrome. 5. Factor V Leiden deficiency. 6. History of breast cancer, status post reconstructive surgery, on Arimidex. 7. Gastroesophageal reflux disease. 8. recent ear surgery Plan . Updated 11/30 Patient to discharge home on Lovenox; Primary to follow Continues on RA Discussed weight loss needs Updated 11/29 Discussed with lab manager, defer to lab manager for anticoagulation Possible repeat CT chest in 2 months Currently on room air Encourage pulmonary hygiene; IS hourly while in bed Labs reviewed Pending ECHO Protonix for prophylaxis PLAN AND RECOMMENDATIONS: 1. Titrate FiO2 to keep O2 saturation 92%. 2. Agree with heparin. 3. Agree with Coumadin. Her BMI is 50, so she is not a candidate for DOAC. 4. I consulted Dr. Everett interventional radiologist to review the CT of the chest as the patient has large clot burden to see if the patient is a candidate for thrombectomy. he reviewed cta and stated she might be a candidate for thrombectomy he will discuss w dr brantley 5. Protonix for gastroesophageal reflux disease. 6. Lose weight. 7. Use CPAP during sleep. I have discussed obstructive sleep apnea-hypopnea syndrome. The importance of treatment if untreated increased cardiovascular and [employer] morbidity and mortality. 8. I will order echocardiogram. GURVINDER GAMBOA MD Nov 30, 2021 10:44
[2021-11-30 11:00] VITALS: BP 128/64
[2021-11-30] MEDS ORDERED: WARF-31 PO (11:52)
--- NOTE | 2021-11-30 12:02 | NUR ---
SS following up with discharge planning. SS reviewed pt chart and discussed with pt RN. Pt is currently on room air. Discharge order on the chart for home with self care. Script for home INR machine received. Script and clinical phoned and faxed to [facility], ; fax [phone]. Pt's RN notified.
--- NOTE | 2021-11-30 15:40 | NUR ---
DISCHARGED PATIENT TO HOME. DISCHARGE INSTRUCTIONS GIVEN. PIV AND HEART MONITOR REMOVED. ESCORTED PATIENT OFF UNIT PER WHEELCHAIR INTO A PRIVATE VEHICLE.
--- NOTE | 2021-12-02 09:26 | PDOC ---
Provider Note Date of Service: DATE: 12/02/21 TIME: 09:25 Provider Note Discharge summary dictated.#[id number]. Justifications for Admission Other Justification SHIRLEY MCBRIDE MD Dec 02, 2021 09:26
--- NOTE | 2021-12-02 09:44 | DS ---
DATE OF DISCHARGE: 11/30/2021 REASON FOR ADMISSION TO THE HOSPITAL: DVT and pulmonary embolism. CONSULTATIONS: Dr. Dumont, Dr. Jimenez. PROCEDURES DONE: 1. Venous Doppler. 2. CT angiogram of the chest. 3. Echocardiogram. HOSPITAL COURSE: The patient is a 51-year-old female. The patient had recently a surgery done on the left ear. She had a CSF leak. She had a surgery done at [facility] two weeks ago for repair of CSF leak, they had to do craniotomy and repair and put a patch for the leak and then she developed swelling in the leg and was found to have bilateral DVT, extensive pulmonary embolism, CT angiogram of the chest showed, the patient was started on heparin drip. The patient was seen by Pulmonology and Hematology. Two of her siblings also had DVT, pulmonary embolism. The patient was treated with heparin and Coumadin and in spite of that, INR was not therapeutic. She is anxious to go home. The patient had a CT of the head which did not show any bleeding and it was decided that the patient will be discharged on Lovenox bridging and continue Coumadin and Lovenox 150 mg twice a day, Coumadin 10 mg daily for 2-3 days and adjust the dose accordingly, to keep INR between 2 and 3 and the patient is also supposed to have a follow up CT scan of the head to make sure there is no bleeding because the patient is on anticoagulation and recent cranial surgery. It was decided that the patient would need at least 1-year of anticoagulation. FINAL DIAGNOSES: 1. Deep venous thrombosis, pulmonary embolism. 2. Recent surgery on the left, here for CSF leak into the left ear, had a surgery done at [facility] 2 weeks ago, craniotomy and repair. 3. History of breast carcinoma, status post mastectomy, on hormone replacement, on hormone treatment. 4. Morbid obesity. DISPOSITION: Home. See [facility] for his medications. INR check Monday, Monday and Monday and scheduled for another CT scan, follow with Neurosurgery. ARCENIO RUBIO: Devan TID: [id number]
== END 2021-11-30 15:41 | disposition home or self-care (01) | DRG 175 ==
LOC: ER 17:36 → 6 SOUTH 21:22
PROVIDERS: ADMIT Internal Medicine; ATTEND Internal Medicine
DX: I26.99 Other pulmonary embolism without acute cor pulmonale (principal); J96.01 Acute respiratory failure with hypoxia; I82.403 Acute embolism and thrombosis of unspecified deep veins of lower extremity, bilateral; D68.51 Activated protein C resistance; G96.00 Cerebrospinal fluid leak, unspecified; E66.9 Obesity, unspecified; G47.33 Obstructive sleep apnea (adult) (pediatric); J45.909 Unspecified asthma, uncomplicated; K21.9 Gastro-esophageal reflux disease without esophagitis; Z79.01 Long term (current) use of anticoagulants; Z80.3 Family history of malignant neoplasm of breast; Z83.2 Family history of diseases of the blood and blood-forming organs and certain disorders involving the immune mechanism; Z85.3 Personal history of malignant neoplasm of breast
CPT/HCPCS: 36415; 70450; 71045; 71275; 80048; 80053; 83735; 83880; 84484; 85025; 85027; 85520; 85610; 85730; 87426; 93005; 93306; 93970; J1644; J1650; Q9967; U0003; 99285-25; C8929; G0378

== ENCOUNTER → 2021-12-06 | Outpatient (CLI) | payer OTHER ==
[2021-11-30 11:00] VITALS: BP 128/64
[~2021-12-06] MED LIST changes: +ACET500T33 PO; +AMOX1TAB11 PO; +ENOX150D SQ; +FAMO20TA5 PO; +LOSA100T14 PO; +PANT40TA77 PO; +WARF-31 PO; +WARF10TA40 PO; +ZOLP5TAB PO
--- NOTE | 2021-12-06 11:43 | RAD ---
PQRS Compliance Statement: One or more of the following individualized dose reduction techniques were utilized for this examinat ion: 1. Automated exposure control 2. Adjustment of the mA and/or kV according to patient size 3. Use of iterative reconstruction technique CT HEAD WITHOUT CONTRAST History: Reason: Brain surgery / Comparison: CT head without contrast 11/27/2021.. Procedure: Axial images are obtained of the head from the skull base through the vertex without IV co ntrast. Findings: Redemonstrated left temporal craniotomy. Deep to the craniotomy there is a small area of left tempora l encephalomalacia. There is extra-axial hypodensity deep to the craniotomy which may be postsurgical . There is no acute hemorrhage. The ventricles and sulci are normal for the patient's age. No mass-effect, midline shift, hemorrhage, or obvious acute infarction is identified. Basilar cister ns are patent. Bone windows demonstrate no acute calvarial abnormality. The visualized paranasal sinuses are clear. Redemonstrated left mastoidectomy. Right mastoid air cell s are opacified. IMPRESSION: 1. No acute intracranial hemorrhage. 2. Stable findings of left temporal craniotomy with underlying small extra-axial hypodensity and lat eral left temporal lobe encephalomalacia. Electronically signed by: Jose Moscoso MD (12/06/2021 11:41 AM) [id number]
== END ==
LOC: CT 10:55
PROVIDERS: ATTEND Internal Medicine
DX: G93.89 Other specified disorders of brain (principal); H95.192 Other disorders following mastoidectomy, left ear; Z48.811 Encounter for surgical aftercare following surgery on the nervous system
CPT/HCPCS: 70450